=== PATIENT | female | born 1940 | race Caucasian/White ===

== ENCOUNTER → 2016-08-06 | Outpatient (CLI) | payer BC ==
[~2016-08-06] MED LIST: AMLO10TA4 PO; ASPI81TA21 PO; ATEN-174 PO; CALC1TAB10 PO; CHOL100040 PO; FLNIN NAE; GLUC10007 PO; HYDR25TA4 PO; LISI40TA PO; MULT-506 PO; SIMV20TA2 PO; TRAM-10 PO
--- NOTE | 2016-08-06 14:28 | MAMMOGRAPHY REPORT ---
BILATERAL DIGITAL SCREENING MAMMOGRAM WITH CAD: 08/06/2016 CLINICAL HISTORY: Routine screening. Patient has no complaints. TECHNIQUE: Bilateral CC, MLO and repeat left CC views were obtained. Current study was also evaluat ed with a Computer Aided Detection (CAD) system. COMPARISON: Comparison is made to exams dated: 08/02/2015 mammogram, 07/27/2014 mammogram, 05/26/2013 mammogram, 05/15/2011 mammogram, 05/04/2010 mammogram, and 05/03/2009 mammogram - [facility]. BREAST COMPOSITION: The tissue of both breasts is almost entirely fatty. FINDINGS: There are stable benign-appearing calcifications within the right breast. No new suspici ous spiculated or irregular mass, architectural distortion or cluster of new, suspicious microcalcif ications is seen. IMPRESSION: ACR BI-RADS CATEGORY 1: NEGATIVE There is no mammographic evidence of malignancy. A 1 year screening mammogram is recommended. The p atient will receive written notification of the results. Approximately 10% of breast cancers are not detected with mammography. A negative mammographic repor t should not delay biopsy if a clinically suggestive mass is present. Kyra Chang M.D. ay/:08/06/2016 13:59:36 [employer] Power Line Repairer: Cata Lowery, [facility] letter sent: Normal 1/2 BI-RADS Code: ACR BI-RADS Category 1: Negative
== END | disposition home or self-care (01) ==
LOC: C.MAMM 07:52
PROVIDERS: ATTEND Internal Medicine
DX: Z12.31 Encounter for screening mammogram for malignant neoplasm of breast (principal)

== ENCOUNTER → 2017-01-16 | Outpatient (CLI) | payer BC ==
[2017-01-16 13:21] LABS: BASO % 0.9 %; BASO ABS # 0.05 K/uL (0-0.2); COMPLETE YES; EOS % 4.3 %; HEMATOCRIT 39.9 % (37-47); IG% 0.2 %; LYMPH % 26.9 %; MEAN CELL VOLUME 90.7 fL (80-100); MEAN CORPUSCULAR HEMOGLOBIN 30.5 pg (25-34); MEAN CORPUSCULAR HGB CONC 33.6 g/dl (32-36); MEAN PLATELET VOLUME 11.9 fL (7.4-10.4); MONO % 7.2 %; NEUT % 60.5 %; PLATELET COUNT 219 K/uL (130-400); WHITE BLOOD COUNT 5.57 K/uL (4.8-10.8)
[2017-01-16 14:10] LABS: ALT/SGPT 25 U/L (12-78); AST/SGOT 23 U/L (15-37); BLOOD UREA NITROGEN 22 mg/dl (7-18); BUN/CREATININE RATIO 21.7 (10-20); CALCIUM 9.7 mg/dl (8.5-10.1); CARBON DIOXIDE 29 mmol/L (21-32); CHLORIDE 102 mmol/L (98-107); CHOLESTEROL 171 mg/dl (0-200); GLUCOSE 93 mg/dl (70-99); POTASSIUM 3.8 mmol/L (3.5-5.1); SODIUM 137 mmol/L (136-145)
[2017-01-16 14:21] LABS: CHOLESTEROL/HDL RATIO 2.1; HDL CHOLESTEROL 83 mg/dl; LDL CHOLESTEROL CALCULATED 71 mg/dl; THYROID STIMULATING HORMONE 0.705 uIu/ml (0.300-4.500); TRIGLYCERIDES 87 mg/dl (0-150); VERY LOW DENSITY LIPOPROT CALC 17 mg/dl
== END | disposition home or self-care (01) ==
LOC: C.LAB1850 12:14
PROVIDERS: ATTEND Internal Medicine
DX: E78.00 Pure hypercholesterolemia, unspecified (principal); I10 Essential (primary) hypertension; I73.9 Peripheral vascular disease, unspecified; R23.2 Flushing

== ENCOUNTER → 2017-01-25 | Outpatient (CLI) | payer BC ==
--- NOTE | 2017-01-25 13:57 | DIAGNOSTIC IMAGING REPORT ---
VENOUS DOPP LOWER EXT UNILAT CLINICAL HISTORY: M79.609,M79.662 pain. Edema. TECHNIQUE: Venous Doppler COMPARISON STUDY: None FINDINGS: Normal study IMPRESSION: Normal study The above report was generated using voice recognition software. It may contain grammatical, syntax or spelling errors. Electronically signed by: Mason Gamboa M.D. 01/25/2017 1:56 PM Dictated Date/Time: 01/25/2017 1:55 PM
== END | disposition home or self-care (01) ==
LOC: C.ULTR 13:15
PROVIDERS: ATTEND Physician Assistant
DX: M79.609 Pain in unspecified limb (principal); M79.662 Pain in left lower leg

== ENCOUNTER → 2017-08-13 | Outpatient (CLI) | payer BC ==
[~2017-08-13] MED LIST changes: +ASPI-319 PO; -ASPI81TA21 PO
[2017-08-13 12:21] LABS: ALT/SGPT 31 U/L (12-78); AST/SGOT 24 U/L (15-37); BLOOD UREA NITROGEN 22 mg/dl (7-18); CALCIUM 9.2 mg/dl (8.5-10.1); CARBON DIOXIDE 28 mmol/L (21-32); CHOLESTEROL 155 mg/dl (0-200); CREATININE 1.04 mg/dl (0.60-1.20); GLUCOSE 101 mg/dl (70-99); POTASSIUM 3.8 mmol/L (3.5-5.1); SODIUM 131 mmol/L (136-145)
[2017-08-13 12:24] LABS: LDL CHOLESTEROL CALCULATED 57 mg/dl
== END | disposition home or self-care (01) ==
LOC: C.LAB1850 10:20
PROVIDERS: ATTEND Internal Medicine
DX: E78.00 Pure hypercholesterolemia, unspecified (principal); I10 Essential (primary) hypertension

== ENCOUNTER → 2017-09-17 | Outpatient (CLI) | payer BC ==
--- NOTE | 2017-09-18 15:05 | MAMMOGRAPHY REPORT ---
BILATERAL DIGITAL SCREENING MAMMOGRAM TOMOSYNTHESIS WITH CAD: 09/17/2017 CLINICAL HISTORY: Routine screening. Patient has no complaints. TECHNIQUE: Breast tomosynthesis in addition to standard 2D mammography was performed. Current study was also evaluated with a Computer Aided Detection (CAD) system. COMPARISON: Comparison is made to exams dated: 08/06/2016 mammogram, 08/02/2015 mammogram, 07/27/2014 m ammogram, 05/26/2013 mammogram, 05/21/2012 mammogram, and 05/15/2011 mammogram - [facility]. BREAST COMPOSITION: The tissue of both breasts is almost entirely fatty. FINDINGS: There are a few stable benign calcifications in the right breast. No suspicious mass, arch itectural distortion or cluster of microcalcifications is seen. IMPRESSION: ACR BI-RADS CATEGORY 1: NEGATIVE There is no mammographic evidence of malignancy. A 1 year screening mammogram is recommended. The pa tient will receive written notification of the results. Approximately 10% of breast cancers are not detected with mammography. A negative mammographic report should not delay biopsy if a clinically suggestive mass is present. Kyra Chang M.D. ay/:09/17/2017 16:38:09 Layout Former: Vicky Rene M, [facility] letter sent: Normal 1/2 BI-RADS Code: ACR BI-RADS Category 1: Negative
== END | disposition home or self-care (01) ==
LOC: C.MAMM 13:20
PROVIDERS: ATTEND Internal Medicine
DX: Z12.31 Encounter for screening mammogram for malignant neoplasm of breast (principal)

== ENCOUNTER → 2017-12-04 | Outpatient (CLI) | payer BC ==
[2017-12-04 10:00] LABS: HEMATOCRIT 38.5 % (37-47); HEMOGLOBIN 12.8 g/dL (12.0-16.0); MEAN CELL VOLUME 92.5 fL (80-100); MEAN CORPUSCULAR HEMOGLOBIN 30.8 pg (25-34); MEAN CORPUSCULAR HGB CONC 33.2 g/dl (32-36); MEAN PLATELET VOLUME 11.2 fL (7.4-10.4); PLATELET COUNT 246 K/uL (130-400); RED CELL DISTRIBUTION WIDTH CV 13.8 % (11.5-14.5); RED CELL DISTRIBUTION WIDTH SD 46.5 fL (36.4-46.3); WHITE BLOOD COUNT 4.39 K/uL (4.8-10.8)
[2017-12-04 13:40] LABS: BLOOD UREA NITROGEN 31 mg/dl (7-18); CALCIUM 9.2 mg/dl (8.5-10.1); CARBON DIOXIDE 26 mmol/L (21-32); CREATININE 1.12 mg/dl (0.60-1.20); GLUCOSE 104 mg/dl (70-99); POTASSIUM 4.5 mmol/L (3.5-5.1); SODIUM 132 mmol/L (136-145)
== END | disposition home or self-care (01) ==
LOC: C.LAB1850 09:36
PROVIDERS: ATTEND Internal Medicine
DX: L67.9 Hair color and hair shaft abnormality, unspecified (principal)

== ENCOUNTER 2023-05-09 08:19 | Inpatient (IN) ==
--- NOTE | 2023-04-11 11:26 | PAT Medication Instructions ---
Medication Instructions Date of Service April 11, 2023 Home Medications Medication Instructions Recorded tramadol 50 mg tablet 50 mg PO Q6H PRN pain #180 tabs 03/21/23 atenolol 50 mg tablet 50 mg PO QAM #90 tabs 04/11/23 multivitamin with iron 1 tab PO QAM aspirin 81 mg tablet,delayed release 81 mg PO QAM biotin 5 mg tablet 5 mg PO BID glucosamine sulfate 2KCl 1,000 mg tablet 2,000 mg PO BID tramadol 50 mg tablet 50 mg PO Q6H PRN acetaminophen 500 mg tablet 500 mg PO Q6H PRN amlodipine 10 mg tablet 10 mg PO QAM atenolol 50 mg tablet 50 mg PO QAM calcium 500 mg tablet 1,000 mg PO QAM cyanocobalamin (vitamin B-12) 5,000 mcg sublingual tablet (Vitamin B-12) 5,000 mcg sublingual QAM hydrochlorothiazide 25 mg tablet 25 mg PO QAM ibuprofen 200 mg tablet (Advil) 200 mg PO Q6H PRN lisinopril 40 mg tablet 40 mg PO QAM simvastatin 20 mg tablet 20 mg PO QPM ASK your surgeon for instructions ibuprofen 200 mg tablet (Advil) 200 mg PO Q6H PRN ASK your prescriber and surgeon aspirin 81 mg tablet,delayed release 81 mg PO QAM STOP taking 2 weeks before surgery (or as soon as possible if surgery is within 2 weeks) biotin 5 mg tablet 5 mg PO BID glucosamine sulfate 2KCl 1,000 mg tablet 2,000 mg PO BID DO NOT take the morning of surgery multivitamin with iron 1 tab PO QAM calcium 500 mg tablet 1,000 mg PO QAM cyanocobalamin (vitamin B-12) 5,000 mcg sublingual tablet (Vitamin B-12) 5,000 mcg sublingual QAM hydrochlorothiazide 25 mg tablet 25 mg PO QAM lisinopril 40 mg tablet 40 mg PO QAM Take morning of surgery With a small sip of water, OTHERWISE NOTHING TO EAT OR DRINK AFTER MIDNIGHT: tramadol 50 mg tablet 50 mg PO Q6H PRN(if needed) acetaminophen 500 mg tablet 500 mg PO Q6H PRN(if needed) amlodipine 10 mg tablet 10 mg PO QAM atenolol 50 mg tablet 50 mg PO QAM Take evening before surgery tramadol 50 mg tablet 50 mg PO Q6H PRN(if needed) acetaminophen 500 mg tablet 500 mg PO Q6H PRN(if needed) simvastatin 20 mg tablet 20 mg PO QPM Other Notes If you have any questions please call us at [phone] or [phone] or [phone] or [phone]
--- NOTE | 2023-04-16 10:30 | Anesthesiology Consultation ---
Date of Service April 16, 2023 Assessment & Plan (1) Encounter for pre-operative examination: - difficult intubation: d/t narrow oropharynx per pt as advised by anesthesiologist in past-no available records. - Outpatient joint assessment: Patient is currently scheduled for inpatient pathway. If re-evaluated and patient/surgeon requests outpatient pathway, patient is not recommended candidate for outpatient joint program from anesthesia standpoint. Chart Review Chart Review: Acceptable Risk for Surgery and Patient seen in Pre Admission Testing Teaching & Discussion Pre-Anesthesia Teaching/Discussion Notes: Instructed NPO after midnight before surgery, except medications with 15 cc of water. Medication instructions provided according to the PAT guidelines. History Surgery Operation Date: 05/10/23 10:30 Proposed Procedures p Right Reverse Total Shoulder Arthroplasty - Harjit Power, Height/Weight Height: 5 ft 1.5 in Weight: 66 kg Allergies Allergy/AdvReac Type Severity Reaction Status Date / Time erythromycin base Allergy Mild hives Verified 04/11/23 09:40 Penicillins Allergy Unknown throat Verified 04/11/23 09:40 swelling Sulfa (Sulfonamide Allergy Unknown Swelling Verified 04/11/23 09:40 Antibiotics) of Lip/Tongue/Throat sulfamethoxazole Allergy Unknown Swelling Verified 04/11/23 09:40 of Lip/Tongue/Throat adhesive AdvReac Unknown skin Verified 04/16/23 10:29 irritation Medications Home Medications Medication Instructions Recorded Confirmed Last Taken multivitamin with iron 1 tab PO QAM 10/13/18 04/11/23 Unknown aspirin 81 mg tablet,delayed 81 mg PO QAM 12/01/18 04/11/23 Unknown release biotin 5 mg tablet 5 mg PO BID 12/01/18 04/11/23 Unknown glucosamine sulfate 2KCl 1,000 mg 2,000 mg PO BID 12/01/18 04/11/23 Unknown tablet tramadol 50 mg tablet 50 mg PO Q6H PRN pain #180 tabs 03/21/23 04/11/23 Unknown acetaminophen 500 mg tablet 500 mg PO Q6H PRN prn 04/11/23 04/11/23 Unknown amlodipine 10 mg tablet 10 mg PO QAM 04/11/23 04/11/23 Unknown atenolol 50 mg tablet 50 mg PO QAM #90 tabs 04/11/23 Unknown calcium 500 mg tablet 1,000 mg PO QAM 04/11/23 04/11/23 Unknown cyanocobalamin (vitamin B-12) 5,000 mcg sublingual QAM 04/11/23 04/11/23 Unknown 5,000 mcg sublingual tablet (Vitamin B-12) hydrochlorothiazide 25 mg tablet 25 mg PO QAM 04/11/23 04/11/23 Unknown ibuprofen 200 mg tablet (Advil) 200 mg PO Q6H PRN prn 04/11/23 04/11/23 Unknown lisinopril 40 mg tablet 40 mg PO QAM 04/11/23 04/11/23 Unknown simvastatin 20 mg tablet 20 mg PO QPM 04/11/23 04/11/23 Unknown Past Medical History Medical History (Updated 04/16/23 @ 10:31 by Shayy Rocha PA-C) Difficult intubation d/t narrow oropharynx per pt as advised by anesthesiologist in past-no available records History of COVID-19 2021, resolved Osteoporosis Chronic pain History of chronic kidney disease patient denies any kidney disease Hypercholesterolemia Hypertension controlled, stable per pt Lumbosacral radiculopathy at L5 Peripheral vascular disease Solitary thyroid nodule Spondylolisthesis, acquired Postoperative CSF leak (07/28/13) with lumbar surgery Patient denies h/o stroke, seizures, heart attack, heart failure, DM, blood clots/DVTs or blood transfusions. Exercise / Class Metabolic Activity II 4-5 Yardwork/Stairs/Walk up hill (denies chest discomfort or shortness of breath with 1 FOS) Past Family History Family History Unknown Hypertension Mother Congestive heart failure Father Stroke syndrome Sister Breast cancer Denies family history of Colon cancer Ovarian cancer Prostate cancer Myocardial infarction Past Surgical History Surgical History History of intravascular stent placement 13 years ago, [facility] History of lumbar spinal fusion x 2 --[address] [facility] [place], 2013 Dr garcia History of colonoscopy S/P tonsillectomy and adenoidectomy S/P small bowel resection S/P cataract surgery bilateral S/P appendectomy Past Anesthesia History Difficult Airway (d/t narrow oropharynx per pt as advised by anesthesiologist in past-no available records) and No Family Hx of Anesthesia Complications History of PONV No Hx of PONV and No Hx of Motion Sickness Social History Smoking Status: Never smoker Do You Dip or Chew Tobacco: No Hx Alcohol Use: Yes Alcohol type: wine alcohol intake frequency: 0-2 drinks per day Hx Substance Use: No Review of Systems Patient denies chest pain, shortness of breath, dyspnea on exertion, snoring, witnessed apneas, reflux, fever, chills, cough, wheezing, or palpitations. Physical Exam Vital Signs Vitals BP 134/60 P 53 TEMP 98.4 SP02 97% on RA RESP 17 Physical Patient resting comfortably in chair in no acute distress, alert and oriented, responding appropriately throughout visit Full cervical extension range of motion without pain TMD < 3 finger breadths Mallampati Score 3, small oral opening Dentition: several crowns, denies chipped or loose teeth, caps, implants or bridges Lungs: normal respiratory effort. Good air movement, clear throughout to auscultation, no adventitious breath sounds Cardiac: regular rate and rhythm, no murmurs noted Carotid arteries: negative bruit bilat Lab Results Anesthesia Preop Results Results Anesthesia Widget: WBC 5.78 K/ul (4.8-10.8) 04/16/23 Hgb 12.6 g/dl (12.0-16.0) 04/16/23 Hct 38.5 % (37.0-47.0) 04/16/23 Plt 289 K/uL (130-400) 04/16/23 Na 134 mmol/L (136-145) L 04/16/23 K 4.4 mmol/L (3.5-5.1) 04/16/23 Cl 97 mmol/L (98-107) L 04/16/23 CO2 30 mmol/L (21-32) 04/16/23 BUN 28 mg/dl (6-23) H 04/16/23 Creat 1.21 mg/dl (0.6-1.2) H 04/16/23 Glucose Level 94 mg/dl (70-99(Fasting)) 04/16/23 PT 10.9 Seconds (9.0-12.0) 04/16/23 PTT 27 Seconds (21-31) 04/16/23 INR 1.0 (0.9-1.1) 04/16/23 TSH 0.451 uIu/ml (0.300-4.500) 03/12/23 Blood Type O Positive 04/16/23 Antibody Screen NEGATIVE 04/16/23 Testing Electrocardiogram Date: 04/16/23 Sinus bradycardia, rate 54 bpm Chest X-Ray Date: 04/16/23 Cardiomegaly with no active disease in the chest. Other Testing Carotid doppler 10/13/19 No hemodynamically significant stenosis seen within the carotid arteries. Scattered plaque bilaterally
[~2023-05-09 08:19] MED LIST changes: +ACETAMINOPHEN 500 MG TAB PO SCH; -AMLO10TA4 PO; -ASPI-319 PO; -ATEN-174 PO; +BUPIVACAINE 0.5 % 5 MG/1 ML PF 10ML VIAL ONE; -CALC1TAB10 PO; -CHOL100040 PO; +FAMOTIDINE 20 MG TAB PO SCH; -FLNIN NAE; +GABAPENTIN 300 MG CAP PO SCH; -GLUC10007 PO; -HYDR25TA4 PO; -LISI40TA PO; +LR 15ML/HR IV SCH; +LR 60ML/HR IV SCH; -MULT-506 PO; +ORTHO JOINT MIX INFIL SCH; -SIMV20TA2 PO; -TRAM-10 PO; +TRANEXAMIC ACID 1,000 MG **IV Intra-op IV SCH; +TRANEXAMIC ACID 1,000 MG **IV Pre-op IV SCH; +dexAMETHasone 4 MG TAB PO SCH
[2023-05-09] MEDS ORDERED: ONDANSETRON INJ 2 MG/ML 2 ML VIAL ONE (09:14)
[2023-05-09] MEDS ORDERED: LIDOCAINE 2% 2 ML VIAL/AMP(20MG/ML) INFIL ONE ×2 (09:14→09:15)
[2023-05-09] MEDS ORDERED: DEXAMETHASONE SOD INJ 4 MG/ML VIAL ONE (09:14)
[2023-05-09] MEDS ORDERED: PROPOFOL IV EMULSION 10 MG/ML 20 ML VIAL IV ONE (09:14)
[2023-05-09] MEDS ORDERED: MIDAZOLAM HCL 1 MG/ML 2ML VIAL ONE (09:15)
[2023-05-09] MEDS ORDERED: fentaNYL citrate PF 100 MCG/2 ML VIAL ONE (09:15)
--- NOTE | 2023-05-09 09:50 | History & Physical Bridge Note ---
Date of Service May 09, 2023 History & Physical Bridge Note I have examined the patient, reviewed the History & Physical and in the interval since the performance of the History & Physical I have noted the following changes of clinical significance: no changes noted
[2023-05-09] MEDS ORDERED: ceFAZolin 2000MG 2,000 MG/15 ML SYR IV ONE (09:59)
[2023-05-09] MEDS ORDERED: ceFAZolin 2,000 MG/15 ML IV PUSH IV ONE (09:59)
[2023-05-09] MEDS ORDERED: PROMETHAZINE HCL 6.25 MG in SODIUM CHLORIDE 0.9% 50 ML IV PRN (10:04)
[2023-05-09] MEDS ORDERED: fentaNYL citrate PF 100 MCG/2 ML VIAL IV PRN (10:04)
[2023-05-09] MEDS ORDERED: ATROPINE SULFATE 0.1 MG/ML 10ML SYR IV PRN (10:04)
[2023-05-09] MEDS ORDERED: ONDANSETRON INJ 2 MG/ML 2 ML VIAL IV PRN ×2 (10:04→14:13)
[2023-05-09] MEDS ORDERED: ePHEDrine sulfate 50 MG/ML AMP IV PRN (10:04)
[2023-05-09] MEDS ORDERED: ORTHO JOINT ANESTHETIC ONE (10:19)
[2023-05-09] MEDS ORDERED: PHENYLEPHRINE 100MCG/ML 10ML SYR IV ONE (10:59)
[2023-05-09] MEDS ORDERED: ePHEDrine sulfate 50 MG/5 ML SYR ONE (11:05)
[2023-05-09] MEDS ORDERED: GLYCOPYRROLATE 0.2 MG/ML VIAL ONE (11:40)
[2023-05-09] MEDS ORDERED: SODIUM CHLORIDE 0.9% PF INJ 10 ML VIAL ONE (11:52)
--- NOTE | 2023-05-09 12:03 | Operative Report ---
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 Post-Op Diagnosis: Cuff tear arthropathy right shoulder with tendinopathy long head of the biceps tendon I identified the patient and participated in the time-out.: Yes Procedure Operation Date: 05/09/23 10:00 Actual Procedures p Right Reverse Total Shoulder Arthroplasty(Right) with open biceps tenodesis as a distinct and separate procedure (modifier 59)- Harjit Power DO Surgeon Harjit Power DO Vendor Specialist Dov Parekh PA-C Estimated Blood Loss 150 Findings Consistent with Post-Op Diagnosis Specimens Right humeral head Description of Procedure A CPT code modifier 59: The long head of the biceps tendon was enlarged and inflamed consistent with tendinopathy. A tenodesis was opted. This was a separate and distinct portion of the procedure. For these reasons, a CPT code modifier 59 will be added to this case. Implants used: I used a [employer] Comprehensive reverse total shoulder arthroplasty system with a size 11 press fit micro humeral stem, a +6 offset humeral tray and a standard humeral bearing, a 25 mm medium augment baseplate with a 6.5 mm central screw and superior and inferior locking screws, and a size 36 mm eccentric glenosphere. Radha arrived at [facility] for the above procedure. She was seen in the preoperative holding area and the operative extremity was identified and signed. She was given a preoperative antibiotic, TXA, and an interscalene nerve block. She was taken back to the operating room, laid on table in supine position, and put under general anesthesia. She was then put into the beachchair position. The shoulder was then prepped and draped in sterile fashion. A timeout was done and the patient and the operative extremity was properly identified. A deltopectoral approach was used. Dissection was taken down through the fascia and the deltoid was retracted laterally and the conjoined tendon was retracted medially. The anterior shoulder was exposed. The biceps groove was opened up and the biceps tendon was examined extensively. The biceps tendon demonstrated enlargement and inflammatory changes consistent with longstanding inflammation in the context of osteoarthritis and cuff arthropathy. The long head of the biceps tendon was then tenodesed to the upper border of the pectoralis major. This was a separate and distinct portion of the procedure. The subscapularis was then directly released off the lesser tuberosity with a peel technique. The inferior capsule was released and the humeral head was dislocated. A canal finding reamer was sent down the center of the humeral canal. Sequential reaming up to a size 11 reamer was done. Off that reamer, a proximal humeral resection guide was placed. The proximal humerus was resected at 135 of inclination and 25 of retroversion. Osteophytes were then removed and the glenoid was exposed. Time was spent doing a complete capsular and labral release. The glenoid guide was then placed in the inferior aspect of the glenoid. A 3.2 mm Steinmann pin was then placed into the glenoid vault at 10 of inclination. The glenoid baseplate was then reamed. The final size 25 mm medium augment baseplate was then impacted in the place. A 6.5 mm central screw was then placed followed by superior and inferior locking screws. A 36 mm eccentric glenosphere was then impacted into place. Surrounding soft tissues were then injected with 100 cc an orthopedic pain control cocktail. The proximal humerus was then exposed. Sequential broaching of the humerus up to a size 11 broach was done. Off that broach a +6 offset humeral tray was trialed. The shoulder was then reduced, brought through a full range of motion, and felt to be stable. The shoulder was then dislocated and the broach was removed. The final size 11 micro press-fit humeral stem was then impacted into place. A standard humeral bearing was then snapped onto a +6 offset humeral tray. The humeral tray was then impacted onto the humeral stem. The shoulder was once again reduced, brought through a full range of motion, and felt to be stable. The subscapularis was then tenodesed back to the lesser tuberosity with transosseous FiberWire sutures and side to side sutures with the arm in 45 of external rotation. A dilute betadyne lavage was then done for 3 minutes. The joint was then irrigated with normal saline solution. Hemostasis was obtained. The interval was closed with 2-0 Vicryl suture. The skin was then closed with 2-0 Vicryl and alex. A Silverlon dressing was placed and the arm was rested in a regular arm sling. She was then extubated and transferred to a hospital bed. She taken to the postanesthesia care unit in stable condition. She tolerated the procedure well. Dov Parekh PA-C, was present for the entire procedure. He was critical for patient positioning, prepping, draping, retraction exposure, wound closure and application of sterile dressing. I attest to the content of the Intraoperative Record and any orders documented therein. Any exceptions are noted below.
--- NOTE | 2023-05-09 13:14 | XRay Report ---
XR shoulder RT min 2V routine CLINICAL HISTORY: Post shoulder surgery. COMPARISON: Right shoulder radiographs February 13, 2023. FINDINGS: Alignment of the reverse total right shoulder arthroplasty is anatomic. No periprosthetic fracture or unexpected radiopaque foreign bodies present. There are skin alex. IMPRESSION: Expected findings following reverse total right shoulder arthroplasty. ACT 112: Negative or not required by law. Electronically signed by: Valerio Stone M.D. 05/09/2023 1:13 PM
[2023-05-09] MEDS ORDERED: HYDROmorphone INJ 0.5 MG/0.5 ML SYR IV PRN (14:13)
[2023-05-09] MEDS ORDERED: SODIUM CHLORIDE 0.9% 1,000 ML IV SCH (14:13)
[2023-05-09] MEDS ORDERED: bisacodyL 10 MG SUPP PR PRN (14:13)
[2023-05-09] MEDS ORDERED: MAGNESIUM HYDROXIDE SUSP 30 ML UDC PO PRN (14:13)
[2023-05-09] MEDS ORDERED: NALOXONE HCL 0.4 MG/1 ML VIAL/CARP IV PRN (14:13)
[2023-05-09] MEDS ORDERED: METOCLOPRAMIDE HCL INJ 5 MG/ML 2 ML VIAL IV PRN (14:13)
--- NOTE | 2023-05-09 15:06 | Anesthesiology Progress Note ---
Date of Service May 09, 2023 Anesthesia Post Procedure Vital Signs Vital Signs: Temp Pulse Pulse Resp BP Pulse Ox O2 Del Method 05/09/23 14:15 36.5 C 57 L 18 132/80 94 Room Air 05/09/23 13:45 35.7 C L 55 L 16 152/78 H 96 Room Air 05/09/23 12:55 36.4 C L 70 18 116/61 96 Nasal Cannula 05/09/23 12:45 80 20 108/78 96 Room Air 05/09/23 12:35 88 22 129/81 97 Room Air 05/09/23 12:25 36 C L 80 14 116/70 99 Oxymask 05/09/23 08:46 36.4 C L 56 L 16 151/74 H 95 Room Air O2 Flow Rate 05/09/23 14:15 05/09/23 13:45 05/09/23 12:55 2 05/09/23 12:45 05/09/23 12:35 05/09/23 12:25 6 05/09/23 08:46 Transfer of Care Handoff Completed per policy Notes Mental Status: alert / awake / arousable Patient Amnestic to Procedure: Yes Nausea / Vomiting: adequately controlled Pain: adequately controlled Airway Patency, RR, SpO2: stable & adequate BP & HR: stable & adequate Hydration State: stable & adequate Anesthetic Complications: no major complications apparent
[2023-05-09] MEDS: ACETAMINOPHEN 500 MG TAB PO SCH ×2 (16:46→22:37)
[2023-05-09] MEDS: KETOROLAC TROMETHAMINE 15 MG/ML VIAL IV SCH ×3 (18:01→22:37)
[2023-05-09] MEDS: ceFAZolin 2000MG 2,000 MG/15 ML SYR IV SCH (18:44)
[2023-05-09] MEDS ORDERED: CHLORASEPTIC (PHENOL) 1.4% SOLN 180 ML BTL MT PRN (19:35)
[2023-05-09] MEDS: SENNA 8.6 MG TAB PO SCH (20:34)
[2023-05-09] MEDS: SIMVASTATIN 20 MG TAB PO SCH (20:34)
[2023-05-09] MEDS: DOCUSATE SODIUM 100 MG CAP PO SCH (20:34)
[2023-05-10] MEDS: ceFAZolin 2000MG 2,000 MG/15 ML SYR IV SCH (01:43)
[2023-05-10] MEDS: KETOROLAC TROMETHAMINE 15 MG/ML VIAL IV SCH (05:03)
[2023-05-10] MEDS: ACETAMINOPHEN 500 MG TAB PO SCH ×3 (05:03→19:08)
[2023-05-10] MEDS ORDERED: dexAMETHasone 4 MG TAB PO SCH (08:00)
[2023-05-10] MEDS: ASPIRIN 81 MG ECTAB PO SCH (08:17)
[2023-05-10] MEDS: amLODIPine BESYLATE 5 MG TAB PO SCH (08:17)
[2023-05-10] MEDS: ATENOLOL 50 MG TABLET PO SCH (08:18)
[2023-05-10] MEDS: CYANOCOBALAMIN (B-12) 2,500 MCG TABLET SL SCH (08:19)
[2023-05-10] MEDS: hydroCHLOROthiazide 25 MG TAB PO SCH (08:20)
[2023-05-10] MEDS: DOCUSATE SODIUM 100 MG CAP PO SCH ×2 (08:20→20:29)
[2023-05-10] MEDS: MULTIVITAMIN TAB PO SCH (08:21)
[2023-05-10] MEDS: lisinopril 40 MG TAB PO SCH (08:21)
--- NOTE | 2023-05-10 10:12 | Orthopedic Progress Note ---
Date of Service May 10, 2023 Assessment & Plan (1) Status post reverse total replacement of right shoulder: Overall, Radha is doing quite well today with good pain control. She will work with physical therapy later on this morning to work on range of motion exercises of the right upper extremity. She is interested in being discharged to [facility]. Case management will work on this. She is stable for discharge once a bed is available. She will follow-up with orthopedics in 2 weeks for postoperative care. I, Dr. Harjit Power, saw and examined the patient this morning. I discussed the surgery and answered any questions. I agree with the plan of care above. Subjective . Radha was seen and evaluated at bedside this morning resting comfortably in no apparent distress. She notes that her pain is well-controlled to the right shoulder. She has been up and ambulating with no issues. Arm is immobilized in sling as directed. No other issues. Review of Systems All systems reviewed & are unremarkable except as noted in HPI & below. Physical Exam . On physical examination of the right shoulder, dressing is in place, clean, dry, and intact. Shoulder immobilized in sling. Active range of motion at the elbow, wrist, and all 5 digits. +2 radial pulse. Less than 2-second capillary refill. Normal sensation. Neurovascular intact. Results & Data Results & Data Laboratory Results . Diagnostic Findings . Postoperative x-rays of the right shoulder show prosthesis to be in anatomical alignment with no evidence of fracture complication or loosening. PG Care Time/CCT Total # of Minutes Spent Total Time Spent with Patient: Total time spent is greater than 50% in coordination of care (as documented) at patient's floor/unit and/or counseling patient: Coding Level of Care Code 19981 Post Operative Follow-Up Diagnoses Status post reverse total replacement of right shoulder Z96.611
[2023-05-10] MEDS: traMADol HCL 50 MG TABLET PO PRN (11:13)
[2023-05-10] MEDS: oxyCODONE HCL IR 5 MG TAB (IMMEDIATE RELEASE) PO PRN ×2 (14:25→20:25)
[2023-05-10] MEDS: SIMVASTATIN 20 MG TAB PO SCH (20:29)
[2023-05-10] MEDS: SENNA 8.6 MG TAB PO SCH (20:29)
[2023-05-10] MEDS: MELATONIN 3 MG TAB PO PRN (21:15)
[2023-05-11] MEDS: oxyCODONE HCL IR 5 MG TAB (IMMEDIATE RELEASE) PO PRN ×2 (03:39→08:22)
[2023-05-11] MEDS: ACETAMINOPHEN 500 MG TAB PO SCH ×3 (06:21→21:04)
--- NOTE | 2023-05-11 07:10 | Orthopedic Progress Note ---
Date of Service May 11, 2023 Assessment & Plan (1) Status post reverse total replacement of right shoulder: Overall she is doing well. She is not having too much pain in the right shoulder. She will be seen by physical therapy today for ambulation and range of motion exercises. She is currently awaiting discharge to a rehab facility. Akash Garcia was seen and examined at bedside this morning. Overall she is doing fairly well. She is a little bit of soreness in the right shoulder but is not too bad. She was able to participate with physical therapy. She has no complaints.. Review of Systems All systems reviewed & are unremarkable except as noted in HPI & below. Physical Exam On physical examination the right shoulder, the dressing is clean and dry. Her right upper extremity is neurovascular intact.. Results & Data Results & Data Laboratory Results . Diagnostic Findings . PG Care Time/CCT Total # of Minutes Spent Total Time Spent with Patient: Total time spent is greater than 50% in coordination of care (as documented) at patient's floor/unit and/or counseling patient: Coding Level of Care Code 58988 Post Operative Follow-Up Diagnoses Status post reverse total replacement of right shoulder Z96.611
[2023-05-11] MEDS: amLODIPine BESYLATE 5 MG TAB PO SCH (08:14)
[2023-05-11] MEDS: ASPIRIN 81 MG ECTAB PO SCH (08:15)
[2023-05-11] MEDS: ATENOLOL 50 MG TABLET PO SCH (08:15)
[2023-05-11] MEDS: CYANOCOBALAMIN (B-12) 2,500 MCG TABLET SL SCH (08:17)
[2023-05-11] MEDS: DOCUSATE SODIUM 100 MG CAP PO SCH ×2 (08:17→21:05)
[2023-05-11] MEDS: hydroCHLOROthiazide 25 MG TAB PO SCH (08:18)
[2023-05-11] MEDS: lisinopril 40 MG TAB PO SCH (08:19)
[2023-05-11] MEDS: MULTIVITAMIN TAB PO SCH (08:19)
[2023-05-11] MEDS: traMADol HCL 50 MG TABLET PO PRN (11:32)
[2023-05-11] MEDS: SENNA 8.6 MG TAB PO SCH (21:05)
[2023-05-11] MEDS: SIMVASTATIN 20 MG TAB PO SCH (21:05)
[2023-05-12] MEDS: ACETAMINOPHEN 500 MG TAB PO SCH ×3 (05:29→22:00)
--- NOTE | 2023-05-12 06:27 | Orthopedic Progress Note ---
Date of Service May 12, 2023 Assessment & Plan (1) Status post reverse total replacement of right shoulder: Overall she is doing well. She is not having much pain in the right shoulder. She will be seen by physical therapy today for ambulation and range of motion exercises. She is awaiting for discharge to rehab on Saturday. Akash Garcia was seen and examined at bedside this morning. Overall she doing very well. She is not having much pain in the right shoulder. She has been working well with physical therapy. She has no complaints.. Review of Systems All systems reviewed & are unremarkable except as noted in HPI & below. Physical Exam On physical examination of right shoulder, the dressing is clean and dry. She is wearing her sling as instructed. She has active motion of her hand and wrist.. Results & Data Results & Data Laboratory Results . Diagnostic Findings . PG Care Time/CCT Total # of Minutes Spent Total Time Spent with Patient: Total time spent is greater than 50% in coordination of care (as documented) at patient's floor/unit and/or counseling patient: Coding Level of Care Code 73593 Post Operative Follow-Up Diagnoses Status post reverse total replacement of right shoulder Z96.611
[2023-05-12] MEDS: hydroCHLOROthiazide 25 MG TAB PO SCH (07:51)
[2023-05-12] MEDS: DOCUSATE SODIUM 100 MG CAP PO SCH ×2 (07:51→21:59)
[2023-05-12] MEDS: lisinopril 40 MG TAB PO SCH (07:51)
[2023-05-12] MEDS: MULTIVITAMIN TAB PO SCH (07:51)
[2023-05-12] MEDS: amLODIPine BESYLATE 5 MG TAB PO SCH (07:52)
[2023-05-12] MEDS: ASPIRIN 81 MG ECTAB PO SCH (07:52)
[2023-05-12] MEDS: ATENOLOL 50 MG TABLET PO SCH (07:52)
[2023-05-12] MEDS: CYANOCOBALAMIN (B-12) 2,500 MCG TABLET SL SCH (07:52)
[2023-05-12] MEDS: traMADol HCL 50 MG TABLET PO PRN (15:24)
[2023-05-12] MEDS: SIMVASTATIN 20 MG TAB PO SCH (22:00)
[2023-05-12] MEDS: SENNA 8.6 MG TAB PO SCH (22:00)
[2023-05-13] MEDS: traMADol HCL 50 MG TABLET PO PRN ×3 (03:16→18:36)
[2023-05-13] MEDS: ACETAMINOPHEN 500 MG TAB PO SCH ×3 (06:12→21:31)
[2023-05-13] MEDS: lisinopril 40 MG TAB PO SCH (07:55)
[2023-05-13] MEDS: ASPIRIN 81 MG ECTAB PO SCH (07:55)
[2023-05-13] MEDS: CYANOCOBALAMIN (B-12) 2,500 MCG TABLET SL SCH (07:56)
[2023-05-13] MEDS: MULTIVITAMIN TAB PO SCH (07:56)
[2023-05-13] MEDS: amLODIPine BESYLATE 5 MG TAB PO SCH (07:56)
[2023-05-13] MEDS: hydroCHLOROthiazide 25 MG TAB PO SCH (07:57)
[2023-05-13] MEDS: DOCUSATE SODIUM 100 MG CAP PO SCH ×2 (07:57→21:30)
[2023-05-13] MEDS: ATENOLOL 50 MG TABLET PO SCH (07:57)
--- NOTE | 2023-05-13 09:24 | Orthopedic Progress Note ---
Date of Service May 13, 2023 Assessment & Plan (1) Status post reverse total replacement of right shoulder: Overall she is doing very well. She is not having much pain in the right shoulder. She has already been seen by physical therapy today. She is awaiting discharge to a nursing facility. Akash Garcia was seen and examined at bedside This morning. She is doing very well. She is not having much pain in the right shoulder. She was seen by physical therapy today. She has no complaints. . Review of Systems All systems reviewed & are unremarkable except as noted in HPI & below. Physical Exam On physical examination of the right shoulder, the sling is well-fitting. She has ice on her shoulder. She is neurovascular intact. . Results & Data Results & Data Laboratory Results . Diagnostic Findings . PG Care Time/CCT Total # of Minutes Spent Total Time Spent with Patient: Total time spent is greater than 50% in coordination of care (as documented) at patient's floor/unit and/or counseling patient: Coding Level of Care Code 55209 Post Operative Follow-Up Diagnoses Status post reverse total replacement of right shoulder Z96.611
[2023-05-13] MEDS: SENNA 8.6 MG TAB PO SCH (21:30)
[2023-05-13] MEDS: SIMVASTATIN 20 MG TAB PO SCH (21:31)
[2023-05-14] MEDS: traMADol HCL 50 MG TABLET PO PRN ×2 (04:43→16:12)
[2023-05-14] MEDS: ACETAMINOPHEN 500 MG TAB PO SCH ×3 (05:21→22:51)
[2023-05-14] MEDS: ATENOLOL 50 MG TABLET PO SCH (07:47)
[2023-05-14] MEDS: hydroCHLOROthiazide 25 MG TAB PO SCH (07:47)
[2023-05-14] MEDS: lisinopril 40 MG TAB PO SCH (07:47)
[2023-05-14] MEDS: CYANOCOBALAMIN (B-12) 2,500 MCG TABLET SL SCH (07:47)
[2023-05-14] MEDS: amLODIPine BESYLATE 5 MG TAB PO SCH (07:47)
[2023-05-14] MEDS: ASPIRIN 81 MG ECTAB PO SCH (07:47)
[2023-05-14] MEDS: MULTIVITAMIN TAB PO SCH (07:47)
[2023-05-14] MEDS: DOCUSATE SODIUM 100 MG CAP PO SCH ×2 (07:48→20:16)
[2023-05-14] MEDS: SIMVASTATIN 20 MG TAB PO SCH (20:15)
[2023-05-14] MEDS: SENNA 8.6 MG TAB PO SCH (20:16)
[2023-05-15] MEDS: ACETAMINOPHEN 500 MG TAB PO SCH ×3 (05:49→21:25)
[2023-05-15] MEDS: DOCUSATE SODIUM 100 MG CAP PO SCH ×2 (08:15→21:24)
[2023-05-15] MEDS: MULTIVITAMIN TAB PO SCH (08:15)
[2023-05-15] MEDS: ATENOLOL 50 MG TABLET PO SCH (08:15)
[2023-05-15] MEDS: lisinopril 40 MG TAB PO SCH (08:15)
[2023-05-15] MEDS: amLODIPine BESYLATE 5 MG TAB PO SCH (08:15)
[2023-05-15] MEDS: ASPIRIN 81 MG ECTAB PO SCH (08:15)
[2023-05-15] MEDS: hydroCHLOROthiazide 25 MG TAB PO SCH (08:15)
[2023-05-15] MEDS: CYANOCOBALAMIN (B-12) 2,500 MCG TABLET SL SCH (08:20)
--- NOTE | 2023-05-15 09:13 | Orthopedic Progress Note ---
Date of Service May 15, 2023 Assessment & Plan (1) Status post reverse total replacement of right shoulder: Overall she is doing very well. She is not having much pain in the right shoulder. She has not been seen by physical therapy today. She is awaiting discharge to [facility]. Anticipated discharge is tomorrow with unknown time. Subjective . Radha (Vijay) is doing quite well today with good pain control to the right shoulder. She is currently still waiting for a bed opening at [facility]. Anticipated discharge is tomorrow. She has worked with physical therapy and Occupational Therapy will be in here. She has no concerns today. Review of Systems All systems reviewed & are unremarkable except as noted in HPI & below. Physical Exam . On physical examination of the right shoulder, the sling is well-fitting. She has ice on her shoulder. She is neurovascular intact. Results & Data Results & Data Laboratory Results . Diagnostic Findings . PG Care Time/CCT Total # of Minutes Spent Total Time Spent with Patient: Total time spent is greater than 50% in coordination of care (as documented) at patient's floor/unit and/or counseling patient: Coding Level of Care Code 74781 Post Operative Follow-Up Diagnoses Status post reverse total replacement of right shoulder Z96.611
[2023-05-15] MEDS: traMADol HCL 50 MG TABLET PO PRN ×3 (11:20→22:06)
[2023-05-15] MEDS: SENNA 8.6 MG TAB PO SCH (21:24)
[2023-05-15] MEDS: SIMVASTATIN 20 MG TAB PO SCH (21:25)
[2023-05-16] MEDS: MELATONIN 3 MG TAB PO PRN ×2 (02:09→22:22)
[2023-05-16] MEDS: traMADol HCL 50 MG TABLET PO PRN ×5 (02:09→22:19)
[2023-05-16] MEDS: ACETAMINOPHEN 500 MG TAB PO SCH ×3 (05:40→22:20)
[2023-05-16] MEDS: amLODIPine BESYLATE 5 MG TAB PO SCH (08:00)
[2023-05-16] MEDS: ASPIRIN 81 MG ECTAB PO SCH (08:00)
[2023-05-16] MEDS: CYANOCOBALAMIN (B-12) 2,500 MCG TABLET SL SCH (08:01)
[2023-05-16] MEDS: DOCUSATE SODIUM 100 MG CAP PO SCH ×2 (08:01→20:36)
[2023-05-16] MEDS: lisinopril 40 MG TAB PO SCH (08:01)
[2023-05-16] MEDS: MULTIVITAMIN TAB PO SCH (08:01)
[2023-05-16] MEDS: hydroCHLOROthiazide 25 MG TAB PO SCH (08:01)
[2023-05-16] MEDS: ATENOLOL 50 MG TABLET PO SCH (08:01)
--- NOTE | 2023-05-16 08:46 | Orthopedic Progress Note ---
Date of Service May 16, 2023 Assessment & Plan (1) Status post reverse total replacement of right shoulder: Overall she is doing very well. She is not having much pain in the right shoulder. Her Silverlon dressing may be taken off today. If surgical site is dry, it may remain open to air. If she does notice her clothes catching on the alex, an ABD with paper tape might be a good alternative to dressings for her at this time. She has not been seen by physical therapy today. She is awaiting discharge to [facility]. Anticipated discharge is either today or tomorrow with unknown time. Case management is currently working on placement. I will hold off placing the discharge order at this time until more information of definite discharge is given. Hopefully a bed is available today for her to be discharged today. Subjective . Radha (Vijay) is doing quite well today with good pain control to the right shoulder. She is currently awaiting for placement [facility]. Anticipated discharge is either today or tomorrow. She is still working with physical therapy and Occupational Therapy daily while she is here. She denies any issues today. Review of Systems All systems reviewed & are unremarkable except as noted in HPI & below. Physical Exam .On physical examination of the right shoulder, the sling is well-fitting. She has ice on her shoulder. She is neurovascular intact. Results & Data Results & Data Laboratory Results . Diagnostic Findings . PG Care Time/CCT Total # of Minutes Spent Total Time Spent with Patient: Total time spent is greater than 50% in coordination of care (as documented) at patient's floor/unit and/or counseling patient: Coding Level of Care Code 63053 Post Operative Follow-Up Diagnoses Status post reverse total replacement of right shoulder Z96.611
[2023-05-16] MEDS: SENNA 8.6 MG TAB PO SCH (20:36)
[2023-05-16] MEDS: SIMVASTATIN 20 MG TAB PO SCH (20:37)
[2023-05-17] MEDS: traMADol HCL 50 MG TABLET PO PRN ×2 (02:31→15:24)
[2023-05-17] MEDS: ACETAMINOPHEN 500 MG TAB PO SCH ×2 (06:01→15:24)
--- NOTE | 2023-05-17 08:23 | Orthopedic Progress Note ---
Date of Service May 17, 2023 Assessment & Plan (1) Status post reverse total replacement of right shoulder: Overall she is doing very well. She is not having much pain in the right shoulder. Her Silverlon dressing may be taken off today. If surgical site is dry, it may remain open to air. If she does notice her clothes catching on the alex, an ABD with paper tape might be a good alternative to dressings for her at this time. She has not been seen by physical therapy today. She is awaiting discharge to [facility]. Anticipated discharge is either today around noon. Case management is currently working on placement. She states that she has an appointment already set to see Harjit either at the end of next week or beginning of the following. Antibiotic was sent to pharmacy. She will follow- up with orthopedics for postoperative care. Akash Case Rakel) was seen and evaluated at bedside this morning resting comfortably in no apparent distress. She is currently still in her sling as of this morning. She has worked since admission with physical therapy and Occupational Therapy stating that this is going very well. She was originally waiting for insurance authorization for discharge to a retirement facility. She was denied yesterday but is self-pay and today. She is going to be discharged today. Review of Systems All systems reviewed & are unremarkable except as noted in HPI & below. Physical Exam .On physical examination of the right shoulder, the sling is well-fitting. She has ice on her shoulder. She is neurovascular intact. Results & Data Results & Data Laboratory Results . Diagnostic Findings . PG Care Time/CCT Total # of Minutes Spent Total Time Spent with Patient: Total time spent is greater than 50% in coordination of care (as documented) at patient's floor/unit and/or counseling patient: Coding Level of Care Code 60646 Post Operative Follow-Up Diagnoses Status post reverse total replacement of right shoulder Z96.611
--- NOTE | 2023-05-17 08:28 | Discharge Summary ---
Date of Service May 17, 2023 Principal Diagnosis Same as "Discharge Diagnosis" noted below under Discharge Instructions. Discharge Exam .On physical examination of the right shoulder, the sling is well-fitting. She has ice on her shoulder. She is neurovascular intact. Discharge Data Procedures Performed Operation Date: 05/09/23 10:00 Actual Procedures p Right Reverse Total Shoulder Arthroplasty(Right) - Harjit Power DO Ordered Studies 05/09/23 05:00 US - OR guided needle placemen Routine Hospital Course (1) Status post reverse total replacement of right shoulder: On May 09, 2023 Radha Ellington) arrived at [facility] and underwent a right reverse total shoulder arthroplasty with Dr. Power without complications. She had a general anesthetic. Postoperatively, she was transferred to PACU for immediate postoperative care and then transferred to the general orthopedic floor in stable condition. Her hospital course was uneventful. On postoperative day #1, her vital signs were stable and her pain was well-controlled. She worked well with physical therapy working on range of motion exercises. Due to her living alone and having limitations due to her right upper extremity being in a sling, she elected to proceed with admission to a assisted facility. Due to this process, she was admitted into the hospital until today. There is no significant events that occurred on postoperative day #2 through postoperative day #8. Her hospital course was uneventful. On postoperative day #8, her vital signs were stable and her pain was well-controlled. She participated well with physical therapy working on range of motion exercises. Insurance denied her stay at assisted facility but she decided to self-pay. She was discharged to assisted [facility] in stable condition. She will follow-up in 10 to 14 days with orthopedics for postoperative care. PG Care Time/CCT Total # of Minutes Spent Total Time Spent with Patient: Total time spent is greater than 50% in coordination of care (as documented) at patient's floor/unit and/or counseling patient: Discharge Plan Discharge Items Patient Disposition: Transfer [facility] Reason For Visit: Right Shoulder DJD Discharge Diagnosis: Same Activity: Per Instructions section Non-emergency contact: Surgeon Call non-emergency contact if: your temperature is above 101.5, your wound has increased redness and your wound has increased drainage Follow-up/Referrals: Pro,Mumtaz Godwin MD [Primary Care Provider] - Diet: Regular Addtl Attending Provider Instructions: Activity and Therapy Recommendations: * If you are using [facility] then therapy will be provided at your home until they feel you have accomplished all of your goals. * If you are using [facility] then Physical Therapy will be provided until they feel you are ready to start Outpatient Physical Therapy. * If you are not using home therapy then Outpatient Physical Therapy should start about 3-5 days from your day of surgery. Therapy will last about 8-12 weeks * Wear your sling for 3 weeks, unless otherwise instructed. You may remove your sling to shower and to dress, but otherwise, you should be in your sling at all times, including while sleeping * The shoulder replacement is very stable and you can use your hand while in the sling * You were shown a series of exercises in the hospital. Do these exercises daily including the exercises you were shown in physical therapy. Medications: * Narcotic You will likely be sent home from the hospital with a prescription for the narcotic pain medication that worked best throughout your stay. * Cefadroxil -take the antibiotic twice a day for 10 days to help prevent infection. * Other medications may be prescribed for specific circumstances. If you have any questions, please call the office at . * Resume previous home medications unless otherwise instructed Dressing Care: Leave the Silverlon dressing in place for 7 days. After 7 days you may remove the dressing. If the incision is not draining then you may leave the alex open to air. If there is a little bit of drainage or if the alex are getting stuck on your clothing then cover the incision with a dry dressing. The alex will be removed at your 2 week follow-up appointment. Showering: You may shower with the Silverlon dressing in place. Do not let the shower spray hit the dressing directly. Pat the Silverlon dressing dry. If the dressing becomes wet underneath, then simply remove the dressing. Keep the incision dry until you are 7 days out from the day of surgery. After 7 days you may remove the Silverlon dressing and shower with the alex exposed. Let soapy water run over the alex and pat them dry. Do not scrub or soak the incision. Things To Watch For: * Drainage from the incision site that occurs more than one week after your surgery. * Increased redness at the incision site. * Fever above 102 degrees Fahrenheit. * Unusual chest pain or shortness of breath. * Call [facility] at with any of the above pr oblems Follow-Up Visit: Follow-up with Dr. Power's PA (Harjit Gutierres) 2-3 weeks after your day of surgery. He will remove your alex and answer any questions. If you have any additional questions or concerns, Dr Power is usually in the office at the same time and will be available An appointment was probably scheduled when you signed-up for surgery in the office. If you have any questions call More detailed instructions as well as Frequently Asked Questions were provided in a folder by our office when you signed-up for surgery. Please review these instructions when you get home. If you have any further questions or concerns, please feel free to call the office at [phone] Pending Studies at Discharge: No Stand-Alone Forms: My [facility] Skilled Items Patient informed of condition?: Yes DNR: No Discharge Level of Care: Acute rehab Communicable Disease: No Discharge Prognosis: Stable Lines: None Urinary Catheter: No Medications and DC Order Prescriptions: New cefadroxil 500 mg capsule 500 mg PO BID 10 Days Qty: 20 0RF Continued atenolol 50 mg tablet 50 mg PO QAM Qty: 90 3RF tramadol 50 mg tablet 50 mg PO Q6H PRN (Reason: pain) Qty: 180 1RF multivitamin with iron tablet 1 tab PO QAM aspirin 81 mg tablet,delayed release (DR/EC) 81 mg PO QAM biotin 5 mg tablet 5 mg PO BID glucosamine sulfate 2KCl 1,000 mg tablet 2,000 mg PO BID amlodipine 10 mg tablet 10 mg PO QAM simvastatin 20 mg tablet 20 mg PO QPM hydrochlorothiazide 25 mg tablet 25 mg PO QAM lisinopril 40 mg tablet 40 mg PO QAM calcium 500 mg Tablet 1,000 mg PO QAM cyanocobalamin (vitamin B-12) [Vitamin B-12] 5,000 mcg Tablet, Sublingual 5,000 mcg SUBLINGUAL QAM acetaminophen 500 mg Tablet 500 mg PO Q6H PRN (Reason: prn) Discontinued ibuprofen [Advil] 200 mg Tablet 200 mg PO Q6H PRN (Reason: prn) Discharge Orders: Discharge Order (Routine); Ordered 05/17/23 Ordered By: Pedro Parekh Admission Data Admit Date/Time: 05/10/23 11:53 Attending Provider: Harjit Power Admit Provider: Harjit Power Primary Care Provider: Mumtaz Navas Other Providers: [facility]; [place],[facility]; [place],[facility]
[2023-05-17] MEDS: CYANOCOBALAMIN (B-12) 2,500 MCG TABLET SL SCH (08:30)
[2023-05-17] MEDS: hydroCHLOROthiazide 25 MG TAB PO SCH (08:30)
[2023-05-17] MEDS: DOCUSATE SODIUM 100 MG CAP PO SCH (08:30)
[2023-05-17] MEDS: ASPIRIN 81 MG ECTAB PO SCH (08:30)
[2023-05-17] MEDS: amLODIPine BESYLATE 5 MG TAB PO SCH (08:30)
[2023-05-17] MEDS: lisinopril 40 MG TAB PO SCH (08:30)
[2023-05-17] MEDS: ATENOLOL 50 MG TABLET PO SCH (08:30)
[2023-05-17] MEDS: MULTIVITAMIN TAB PO SCH (08:31)
[2023-05-17] MEDS: oxyCODONE HCL IR 5 MG TAB (IMMEDIATE RELEASE) PO PRN (08:34)
== END 2023-05-17 15:32 | disposition home or self-care (01) | DRG 483 ==
LOC: ASU 08:19 → 3E 08:19

== ENCOUNTER 2023-11-11 06:35 | Inpatient (IN) ==
--- NOTE | 2023-10-10 10:55 | PAT Medication Instructions ---
Medication Instructions Date of Service October 10, 2023 Home Medications Medication Instructions Recorded atenolol 50 mg tablet 50 mg PO QAM #90 tabs 04/11/23 simvastatin 20 mg tablet 20 mg PO QPM #90 tabs 06/03/23 tramadol 50 mg tablet 50 mg PO Q6H PRN pain #180 tabs 07/03/23 hydrochlorothiazide 25 mg tablet 25 mg PO QAM #90 tabs 08/26/23 amlodipine 10 mg tablet 10 mg PO QAM #90 tabs 09/10/23 Medication List: multivitamin with iron 1 tab PO QAM aspirin 81 mg tablet,delayed release 81 mg PO QAM glucosamine sulfate 2KCl 1,000 mg tablet 2,000 mg PO BID acetaminophen 500 mg tablet 500 - 1,000 mg PO Q6H PRN prn atenolol 50 mg tablet 50 mg PO QAM calcium 500 mg tablet 1,000 mg PO QAM cyanocobalamin (vitamin B-12) 5,000 mcg sublingual tablet (Vitamin B-12) 5,000 mcg sublingual QAM lisinopril 40 mg tablet 40 mg PO QAM simvastatin 20 mg tablet 20 mg PO QPM tramadol 50 mg tablet 50 mg PO Q6H PRN pain docusate sodium 100 mg tablet 100 mg PO BID PRN Constipation hydrochlorothiazide 25 mg tablet 25 mg PO QAM amlodipine 10 mg tablet 10 mg PO QAM MEDICATION INSTRUCTIONS: ASK your prescriber and surgeon aspirin 81 mg tablet,delayed release 81 mg PO QAM STOP taking 2 weeks before surgery glucosamine sulfate 2KCl 1,000 mg tablet 2,000 mg PO BID DO NOT take the morning of surgery hydrochlorothiazide 25 mg tablet 25 mg PO QAM lisinopril 40 mg tablet 40 mg PO QAM calcium 500 mg tablet 1,000 mg PO QAM multivitamin with iron 1 tab PO QAM cyanocobalamin (vitamin B-12) 5,000 mcg sublingual tablet (Vitamin B-12) 5,000 mcg sublingual QAM docusate sodium 100 mg tablet 100 mg PO BID PRN Constipation Take morning of surgery With a small sip of water, OTHERWISE NOTHING TO EAT OR DRINK AFTER MIDNIGHT: atenolol 50 mg tablet 50 mg PO QAM amlodipine 10 mg tablet 10 mg PO QAM acetaminophen 500 mg tablet 500 - 1,000 mg PO Q6H PRN prn tramadol 50 mg tablet 50 mg PO Q6H PRN pain Take evening before surgery simvastatin 20 mg tablet 20 mg PO QPM acetaminophen 500 mg tablet 500 - 1,000 mg PO Q6H PRN prn tramadol 50 mg tablet 50 mg PO Q6H PRN pain docusate sodium 100 mg tablet 100 mg PO BID PRN Constipation Other Notes If you have any questions please call us at [phone] or [phone] or [phone] or [phone]
--- NOTE | 2023-10-21 10:51 | Anesthesiology Consultation ---
Date of Service October 21, 2023 Assessment & Plan (1) Encounter for pre-operative examination: - Infectious disease screening: Per assessment on 10/21/23: No known recent infectious disease contacts or current infectious disease symptoms. - Previous anesthesia experience: * Hx difficult intubation: d/t narrow oropharynx per pt as advised by anesthesiologist remotely > Had Right TSA (05/09/23): LMA#4 iGel + regional at [facility] * S/P RLE angiogram (07/19/23): MAC at [facility]. No issues noted per post-op anesthesia progress note. Per procedure notes from surgeon, "The right iliac stent had a question of narrowing in the midportion however appeared to be more artifactual than true. The flow through the stent was very rapid. External iliac was patent with no stenosis however the right common femoral artery had significant stenosis at its entire length prior to the bifurcation into the profunda and superficial femoral arteries. Due to the location of the plaque it was decided not to do any intervention." * S/P Bilateral LE Runoff U/S Localization of Left Femoral Artery, Moderate Sedation (09/06/23) at [facility] Chart Review Chart Review: Acceptable Risk for Surgery and Patient seen in Pre Admission Testing Teaching & Discussion Pre-Anesthesia Teaching/Discussion Notes: Instructed NPO after midnight before surgery,except medications with 15 cc of water. Medication instructions provided according to the PAT guidelines. History Surgery Operation Date: 11/13/23 07:30 Proposed Procedures p Right Lower Extremity Common Femoral Artery Endarterectomy, Femoral to Above the Knee Popliteal Prosthetic Bypass Graft, External Iliac Stenting - Wil Salas MD Height/Weight Height: 5 ft 1.5 in Weight: 63.2 kg Allergies Allergy/AdvReac Type Severity Reaction Status Date / Time erythromycin base Allergy Severe Lip Verified 10/21/23 10:51 swelling Penicillins Allergy Severe Throat Verified 10/21/23 10:51 swelling Sulfa (Sulfonamide Allergy Severe Swelling Verified 10/08/23 09:03 Antibiotics) of Lip/Tongue/Throat sulfamethoxazole Allergy Severe Swelling Verified 10/08/23 09:03 of Lip/Tongue/Throat adhesive AdvReac Mild Skin Verified 10/21/23 10:51 irritation Medications Home Medications Medication Instructions Recorded Confirmed Last Taken multivitamin with iron 1 tab PO QAM 10/13/18 10/08/23 09/05/23 07:00 aspirin 81 mg tablet,delayed 81 mg PO QAM 12/01/18 10/08/23 09/06/23 07:00 release glucosamine sulfate 2KCl 1,000 mg 2,000 mg PO BID 12/01/18 10/08/23 09/05/23 07:00 tablet acetaminophen 500 mg tablet 500 - 1,000 mg PO Q6H PRN prn 04/11/23 10/08/23 07/12/23 atenolol 50 mg tablet 50 mg PO QAM #90 tabs 04/11/23 10/08/23 09/05/23 07:00 calcium 500 mg tablet 1,000 mg PO QAM 04/11/23 10/08/23 09/05/23 07:00 cyanocobalamin (vitamin B-12) 5,000 mcg sublingual QAM 04/11/23 10/08/23 09/05/23 07:00 5,000 mcg sublingual tablet (Vitamin B-12) lisinopril 40 mg tablet 40 mg PO QAM 04/11/23 10/08/23 09/06/23 07:00 simvastatin 20 mg tablet 20 mg PO QPM #90 tabs 06/03/23 10/08/23 09/05/23 07:00 tramadol 50 mg tablet 50 mg PO Q6H PRN pain #180 tabs 07/03/23 10/08/23 09/06/23 07:00 docusate sodium 100 mg tablet 100 mg PO BID PRN Constipation 07/16/23 10/08/23 09/05/23 07:00 hydrochlorothiazide 25 mg tablet 25 mg PO QAM #90 tabs 08/26/23 10/08/23 09/05/23 07:00 amlodipine 10 mg tablet 10 mg PO QAM #90 tabs 09/10/23 10/08/23 Unknown Past Medical History Medical History Aortoiliac stenosis Arthritis Chronic kidney disease History of COVID-2021, resolved Hx of deep venous thrombosis Remote hx, 1980s Hx of migraines Hyperlipidemia Hypertension Osteoarthritis Osteoporosis PAD (peripheral artery disease) Postoperative CSF leak Remote hx, many years ago Associated with lumbar surgery (required blood patch intervention) PVD (peripheral vascular disease) Solitary thyroid nodule Per records Spinal stenosis Spondylolisthesis, acquired Per records Exercise / Class Metabolic Activity III < 4 Walking/Shop/Light housework Past Family History Family History Unknown Hypertension Mother Congestive heart failure Father Stroke syndrome Sister Breast cancer Other No family history of adverse response to anesthesia Denies family history of Colon cancer Ovarian cancer Prostate cancer Myocardial infarction Past Surgical History Surgical History Difficult intubation d/t narrow oropharynx per pt as advised by anesthesiologist remotely Had Right TSA (05/09/23): LMA#4 iGel + regional at [facility] History of colonoscopy History of intravascular stent placement R/L groin (2013) History of lumbar spinal fusion x2 (last one 2013) History of right shoulder replacement Right TSA (05/09/23): LMA#4 iGel + regional at [facility] History of tonsillectomy and adenoidectomy History of tooth extraction S/P appendectomy S/P cataract surgery R/L S/p reverse total shoulder arthroplasty right S/P small bowel resection R/t adhesions Past Anesthesia History Difficult Airway and No Family Hx of Anesthesia Complications D/t narrow oropharynx per pt as advised by anesthesiologist remotely Had Right TSA (05/09/23): LMA#4 iGel + regional at [facility] History of PONV No Hx of PONV and No Hx of Motion Sickness Social History Smoking Status: Former smoker Do You Dip or Chew Tobacco: No Smoking End Date: Quit age 53 Hx Alcohol Use: Yes Alcohol type: wine alcohol intake frequency: a few times a week substance use type: does not use Review of Systems Patient denies chest pain, shortness of breath, fever, chills, cough, wheezing, palpitations. Physical Exam Vital Signs BP 130/74 P 55 TEMP 97.9 SP02 95%RA RESP 18 Physical Full cervical extension range of motion. Full TMJ range of motion. TMD 3 finger breaths Mallampati Score 3 Dentition: missing molars, crowns (sides/molars) Lungs: clear throughout to auscultation Cardiac: regular rate and rhythm, II/ systolic murmur Spine: normal Carotid arteries: negative bruit Extremities: no LE edema Lab Results Anesthesia Preop Results Results Anesthesia Widget: WBC 5.77 K/ul (4.8-10.8) 10/21/23 Hgb 13.0 g/dl (12.0-16.0) 10/21/23 Hct 40.1 % (37.0-47.0) 10/21/23 Plt 245 K/uL (130-400) 10/21/23 Na 134 mmol/L (136-145) L 10/21/23 K 4.4 mmol/L (3.5-5.1) 10/21/23 Cl 97 mmol/L (98-107) L 10/21/23 CO2 30 mmol/L (21-32) 10/21/23 BUN 22 mg/dl (6-23) 10/21/23 Creat 0.92 mg/dl (0.6-1.2) 10/21/23 Glucose Level 98 mg/dl (70-99(Fasting)) 10/21/23 PT 10.9 Seconds (9.0-12.0) 10/21/23 PTT 27 Seconds (21-31) 10/21/23 INR 1.0 (0.9-1.1) 10/21/23 TSH 2.412 uIu/ml (0.300-4.500) 09/12/23 Blood Type O Positive 10/21/23 Antibody Screen NEGATIVE 10/21/23 Testing Electrocardiogram Date: 04/16/23 Sinus bradycardia, rate 54 bpm Chest X-Ray Date: 04/16/23 Cardiomegaly with no active disease in the chest. Echocardiogram Date: 10/04/23 EF 70%. Hyperdynamic LV systolic function with no RWMA. Asymmetric basal septal hypertrophy of the elderly. Grade I DD. Indeterminate left atrial pressure. Trace to mild AI. Mild MR. Mild to moderate TR. Mildly elevated pulmonary artery pressures, estimated PASP 37mmhg ("which may be over estimated due to patient's hyperdynamic state." Other Testing Carotid doppler Date: 10/13/19 No hemodynamically significant stenosis seen within the carotid arteries. Scattered plaque bilaterally
[2023-11-11] MEDS ORDERED: DEXAMETHASONE SOD INJ 4 MG/ML VIAL ONE (07:03)
[2023-11-11] MEDS ORDERED: PROPOFOL IV EMULSION 10 MG/ML 20 ML VIAL IV ONE (07:03)
[2023-11-11] MEDS ORDERED: ROCURONIUM BROMIDE 10 MG/ML 5 ML VIAL IV ONE ×2 (07:03→09:15)
[2023-11-11] MEDS ORDERED: LIDOCAINE 2% 2 ML VIAL/AMP(20MG/ML) INFIL ONE (07:03)
[2023-11-11] MEDS ORDERED: fentaNYL citrate PF 100 MCG/2 ML VIAL ONE ×2 (07:03→08:47)
[2023-11-11] MEDS ORDERED: ONDANSETRON INJ 2 MG/ML 2 ML VIAL ONE (07:03)
--- NOTE | 2023-11-11 07:29 | History & Physical Report ---
Date of Service November 11, 2023 Assessment & Plan (1) PAD (peripheral artery disease): Plan: Patient's diagnostic angiogram did demonstrate a distal external iliac artery lesion, as well as a common femoral artery lesion and her well-known bilateral SFA occlusions. Due to the severity of her calf claudication symptoms, we recommended that she undergo stenting of the external iliac artery lesion, a right common femoral artery endarterectomy, and a common femoral artery to above-knee popliteal artery prosthetic bypass. The procedure risks benefits and alternatives were discussed with the patient. Patient expressed understanding and agreement to proceed. History of Present Illness Chief Complaint: Right lower extremity claudication Primary Care Provider: Mumtaz Navas MD Ms. Husain is an elderly female who presents to vascular surgery clinic today for a follow-up visit after undergoing a diagnostic bilateral lower extremity arteriogram due to significant peripheral arterial disease. As you may remember, patient does have a history of significant aortoiliac occlusive disease and has undergone iliac stenting in the past. She is also known to have significant peripheral arterial disease with bilateral SFAO. Patient has been complaining of significant right leg claudication which limits her activity, and a diagnostic angiogram was performed to assist with surgical planning. Patient denies any complaints or concerns related to her puncture site. She does state that she is interested in undergoing necessary surgery which was discussed with her on the day of her angiogram. Allergies Allergy/AdvReac Type Severity Reaction Status Date / Time erythromycin base Allergy Severe Lip Verified 11/11/23 07:03 swelling Penicillins Allergy Severe Throat Verified 11/11/23 07:03 swelling Sulfa (Sulfonamide Allergy Severe Swelling Verified 11/11/23 07:03 Antibiotics) of Lip/Tongue/Throat sulfamethoxazole Allergy Severe Swelling Verified 11/11/23 07:03 of Lip/Tongue/Throat adhesive AdvReac Mild Skin Verified 11/11/23 07:03 irritation Home Medications Medication Instructions Recorded Confirmed Type multivitamin with iron 1 tab PO QAM 10/13/18 11/11/23 History aspirin 81 mg tablet,delayed 81 mg PO QAM 12/01/18 11/11/23 History release glucosamine sulfate 2KCl 1,000 mg 2,000 mg PO BID 12/01/18 11/11/23 History tablet acetaminophen 500 mg tablet 500 - 1,000 mg PO Q6H PRN prn 04/11/23 11/11/23 History atenolol 50 mg tablet 50 mg PO QAM #90 tabs 04/11/23 11/11/23 Rx calcium 500 mg tablet 1,000 mg PO QAM 04/11/23 11/11/23 History cyanocobalamin (vitamin B-12) 5,000 mcg sublingual QAM 04/11/23 11/11/23 History 5,000 mcg sublingual tablet (Vitamin B-12) lisinopril 40 mg tablet 40 mg PO QAM 04/11/23 11/11/23 History simvastatin 20 mg tablet 20 mg PO QPM #90 tabs 06/03/23 11/11/23 Rx tramadol 50 mg tablet 50 mg PO Q6H PRN pain #180 tabs 07/03/23 11/11/23 Rx docusate sodium 100 mg tablet 100 mg PO BID PRN Constipation 07/16/23 11/11/23 History hydrochlorothiazide 25 mg tablet 25 mg PO QAM #90 tabs 08/26/23 11/11/23 Rx amlodipine 10 mg tablet 10 mg PO QAM #90 tabs 09/10/23 11/11/23 Rx clindamycin HCl 300 mg capsule 300 mg PO ONCE #2 caps 10/28/23 11/11/23 Rx Past Med/Surg History Problem List Encounter for pre-operative examination Medical History Osteoarthritis Aortoiliac stenosis PAD (peripheral artery disease) PVD (peripheral vascular disease) Osteoporosis Solitary thyroid nodule Per records Spondylolisthesis, acquired Per records Chronic kidney disease Spinal stenosis Arthritis Hx of deep venous thrombosis Remote hx, 1980s Hx of migraines Hypertension Hyperlipidemia History of COVID-19 2021, resolved Postoperative CSF leak Remote hx, many years ago Associated with lumbar surgery (required blood patch intervention) Surgical History History of right shoulder replacement Right TSA (05/09/23): LMA#4 iGel + regional at [facility] History of tooth extraction History of tonsillectomy and adenoidectomy Difficult intubation d/t narrow oropharynx per pt as advised by anesthesiologist remotely Had Right TSA (05/09/23): LMA#4 iGel + regional at [facility] S/p reverse total shoulder arthroplasty right History of intravascular stent placement R/L groin (2014) History of lumbar spinal fusion x2 (last one 2013) History of colonoscopy S/P small bowel resection R/t adhesions S/P cataract surgery R/L S/P appendectomy Family History Unknown Hypertension Mother Congestive heart failure Father Stroke syndrome Sister Breast cancer Other No family history of adverse response to anesthesia Denies family history of Colon cancer Ovarian cancer Prostate cancer Myocardial infarction Social History Smoking Status: Former smoker Tobacco Type: Cigarettes Smoking End Date: Quit age 53; Second Hand Exposure: Yes (in the past as a child); Do You Dip or Chew Tobacco: No; Hx Alcohol Use: Yes Alcohol type: wine Preferred Language: Kyrgyz Communication Ability: Effective Visual Impairment: No Limitations Hearing Ability: Normal Social Worker School Required: No Beliefs That Will Affect Care: None marital status: / Current Living Situation: Alone current occupational status: retired Feels Safe at Home: Yes Safety Concerns: Feels Safe At This Time Childhood Exposure to Second-Hand Smoke: Yes Dental Care, Regularly: Yes Physical Activity Frequency: Does not Exercise Seatbelt Use: always Sunscreen Use: Yes Assistive Devices: Cane and Glasses Assistive Devices Comment: reading glasses Review of Systems All systems reviewed & are unremarkable except as noted in HPI & below Physical Exam Physical Exam: Constitutional: In general patient is a healthy-appearing well-nourished well- developed elderly female in no distress. She is alert and oriented with any focal deficits. Her heart is regular, her lungs are clear. Her abdomen is soft nontender to bowel sounds in 4 quadrants. Her femoral puncture sites are well- healed. Her lower extremities a pulses are nonpalpable, but are dopplerable. Results & Data Vital Signs (Past 12 Hours) Vital Signs Temp Pulse Resp BP Pulse Ox O2 Del Method 11/11/23 06:54 37.2 C 50 L 20 161/73 H 95 Room Air Code Status & VTE Plan VTE Prophylaxis Plan VTE Prophylaxis will be ordered: Yes
[2023-11-11] MEDS: SODIUM CHLORIDE 0.9% 1,000 ML IV SCH (07:30)
[2023-11-11 07:42] LABS: BUN Creatinine Ratio 23.9 (10-20); Calcium 9.2 mg/dl (8.6-10.3); Creatinine Clr Calc Pharmacy 40.1 ml/min; Est GFR (African American) 69.4 ml/min; Est GFR (Non-African American) 59.9 ml/min
[2023-11-11] MEDS ORDERED: ATROPINE SULFATE 0.1 MG/ML 10ML SYR IV PRN (08:04)
[2023-11-11] MEDS ORDERED: ePHEDrine sulfate 50 MG/ML AMP IV PRN (08:04)
[2023-11-11] MEDS ORDERED: DROPERIDOL 5 MG/2 ML VIAL IV PRN (08:04)
[2023-11-11] MEDS: CLINDAMYCIN/D5W 900 MG/50 ML BAG IV SCH (08:06)
[2023-11-11] MEDS ORDERED: KETAMINE HCL 10MG/ML SYR ONE (08:12)
[2023-11-11] MEDS ORDERED: GLYCOPYRROLATE 0.2 MG/ML VIAL ONE (09:02)
[2023-11-11] MEDS: LIDOCAINE 1% LOCAL 20 ML VIAL ONE (09:44)
[2023-11-11] MEDS: THROMBIN FOR SOLN 20000 UNIT KIT ONE (09:44)
[2023-11-11] MEDS: BUPIVACAINE/EPINEPHRINE 0.5% MPF 1:200,000 30 ML VIAL ONE (09:44)
[2023-11-11] MEDS: ceFAZolin 330 MG/ML 1 GM VIAL ONE (09:44)
[2023-11-11] MEDS: GELATIN SPONGE SZ 100 ONE (09:45)
[2023-11-11] MEDS ORDERED: HEPARIN SOD (PORCINE) 1000 UNIT/ML ONE (09:58)
[2023-11-11] MEDS ORDERED: SUGAMMADEX SODIUM 200 MG/2 ML VIAL IV ONE (10:57)
[2023-11-11] MEDS ORDERED: PROTAMINE SULFATE 10 MG/ML 5 ML VIAL IV ONE (10:58)
[2023-11-11] MEDS: VISIPAQUE IV ONE (11:35)
[2023-11-11] MEDS: PAPAVERINE HCL INJ 30 MG/ML 2 ML VIAL ONE (11:35)
[2023-11-11] MEDS: HEPARIN (PORCINE) 1000 UNIT/ML 10 ML (CATH LAB USE ONLY) ONE (11:35)
--- NOTE | 2023-11-11 11:57 | Post Operative Brief Note ---
Immediate Post Op Note Date of Surgery November 11, 2023 Pre & Post Diagnosis Operation Date: 11/11/23 08:00 Pre-Op Diagnosis: (1) PAD (peripheral artery disease) Post-Op Diagnosis: (1) PAD (peripheral artery disease) I identified the patient and participated in the time-out.: Yes Procedure Operation Date: 11/11/23 08:00 Actual Procedures p Right Lower Extremity Common Femoral Artery Endarterectomy with bovine patch, External Iliac Stenting, cannulation of the aorta(Right) - Wil Salas MD Surgeon Wil Salas MD Rubber Trimmer none Estimated Blood Loss 250 Findings Consistent with Post-Op Diagnosis Drains Hemovac Drain (PREVINA)
[2023-11-11] MEDS: fentaNYL citrate PF 100 MCG/2 ML VIAL IV PRN (12:07)
[2023-11-11 12:37] LABS: Basophils # (auto) 0.04 K/uL (0.00-0.20); Basophils % (auto) 0.8 %; Eosinophils # (auto) 0.06 K/uL (0.00-0.50); Eosinophils % (auto) 1.2 %; Hematocrit (blood only) 31.6 % (37.0-47.0); Hemoglobin 10.2 g/dl (12.0-16.0); Immature Granulocytes # (auto) 0.01 K/uL (0.01-0.20); Immature Granulocytes % (auto) 0.2 %; Lymphocytes # (auto) 0.86 K/uL (1.20-3.40); Mean Corpuscular Hemoglobin 28.7 pg (25.0-34.0); Mean Corpuscular Hgb Conc 32.3 g/dL (32.0-36.0); Mean Platelet Volume 11.2 fL (9.4-12.4); Monocytes # (auto) 0.15 K/uL (0.11-0.59); Neutrophils # (auto) 3.93 K/uL (1.40-6.50); Neutrophils % (auto) 77.8 %; Platelet Count 190 K/uL (130-400); RDW Coefficient of Variation 13.7 % (11.5-14.5); RDW Standard Deviation 44.5 fL (36.4-46.3); Red Blood Count 3.55 M/uL (4.20-5.40); White Blood Count 5.05 K/ul (4.8-10.8)
[2023-11-11] MEDS: ACETAMINOPHEN 1,000 MG/100 ML VIAL IV STA (12:51)
[2023-11-11] MEDS ORDERED: ONDANSETRON INJ 2 MG/ML 2 ML VIAL IV PRN (13:48)
[2023-11-11] MEDS ORDERED: MoRPHine SULFATE 4 MG/ML 1 ML CARP\\VIAL IV PRN (13:48)
[2023-11-11] MEDS ORDERED: PHENYLEPHRINE/NSS 25 MG/250 ML BAG IV PRN (13:48)
--- NOTE | 2023-11-11 13:56 | Critical Care Consultation ---
Date of Consultation November 11, 2023 Assessment & Plan (1) PAD (peripheral artery disease): (2) Bradycardia: Plan Impression: 83-year-old female with elective right femoral endarterectomy in the ICU for monitoring postoperatively. Recommendations: 1. Peripheral vascular disease status post endarterectomy: Management per vascular surgery. Continue neurovascular and pulse checks. 2. Postoperative anemia: Baseline hemoglobin around 13 now down to 10. Will continue to follow with serial hemoglobin and hematocrit. 3. Bradycardia: This appears to be a chronic finding and the patient is asymptomatic. No acute intervention required currently. Atenolol may not be the best blood pressure medication for this patient in the long-term however will defer to her primary care provider. 4. Mild hyponatremia: Appears chronic in nature. No acute indication required. Likely exacerbated by the patient's use of hydrochlorothiazide. Again would recommend an alternative antihypertensive in this patient. 5. Hypertension: Continue lisinopril and Norvasc. The patient's remaining critical care issues have been well addressed by the vascular surgery service. Will continue to follow in the ICU postoperatively. Feel free to contact us with questions or concerns History of Present Illness Attending Physician: Wil Salas MD History of Present Illness Asked by vascular surgery to assist in evaluation management this patient post femoral endarterectomy. History is obtained from review electronic medical record as well as discussion with the patient. Patient is an 83-year-old female with a history of peripheral vascular disease. She was seen in the vascular surgery clinic after bilateral lower extremity angiogram. She was found to have distal external iliac disease as well as common femoral disease and it was recommended that she undergo a right femoral endarterectomy and a common femoral to popliteal prosthetic bypass. She was taken to the OR today where she underwent right femoral endarterectomy with external iliac stenting. She was observed in PACU and was bradycardic which is not a new finding for her dating back to her prior admissions. She is hemodynamically stable. Leg is neurovascularly intact. She is brought to the ICU for postoperative monitoring. She denies any chest pain or palpitations. No shortness of breath. No nausea or vomiting. No syncope or presyncope. Allergies Allergy/AdvReac Type Severity Reaction Status Date / Time erythromycin base Allergy Severe Lip Verified 11/11/23 07:03 swelling Penicillins Allergy Severe Throat Verified 11/11/23 07:03 swelling Sulfa (Sulfonamide Allergy Severe Swelling Verified 11/11/23 07:03 Antibiotics) of Lip/Tongue/Throat sulfamethoxazole Allergy Severe Swelling Verified 11/11/23 07:03 of Lip/Tongue/Throat adhesive AdvReac Mild Skin Verified 11/11/23 07:03 irritation Home Medications Medication Instructions Recorded Confirmed Type multivitamin with iron 1 tab PO QAM 10/13/18 11/11/23 History aspirin 81 mg tablet,delayed 81 mg PO QAM 12/01/18 11/11/23 History release glucosamine sulfate 2KCl 1,000 mg 2,000 mg PO BID 12/01/18 11/11/23 History tablet acetaminophen 500 mg tablet 500 - 1,000 mg PO Q6H PRN prn 04/11/23 11/11/23 History atenolol 50 mg tablet 50 mg PO QAM #90 tabs 04/11/23 11/11/23 Rx calcium 500 mg tablet 1,000 mg PO QAM 04/11/23 11/11/23 History cyanocobalamin (vitamin B-12) 5,000 mcg sublingual QAM 04/11/23 11/11/23 History 5,000 mcg sublingual tablet (Vitamin B-12) lisinopril 40 mg tablet 40 mg PO QAM 04/11/23 11/11/23 History simvastatin 20 mg tablet 20 mg PO QPM #90 tabs 06/03/23 11/11/23 Rx tramadol 50 mg tablet 50 mg PO Q6H PRN pain #180 tabs 07/03/23 11/11/23 Rx docusate sodium 100 mg tablet 100 mg PO BID PRN Constipation 07/16/23 11/11/23 History hydrochlorothiazide 25 mg tablet 25 mg PO QAM #90 tabs 08/26/23 11/11/23 Rx amlodipine 10 mg tablet 10 mg PO QAM #90 tabs 09/10/23 11/11/23 Rx clindamycin HCl 300 mg capsule 300 mg PO ONCE #2 caps 10/28/23 11/11/23 Rx Patient History Medical History Osteoarthritis Aortoiliac stenosis PAD (peripheral artery disease) PVD (peripheral vascular disease) Osteoporosis Solitary thyroid nodule Per records Spondylolisthesis, acquired Per records Chronic kidney disease Spinal stenosis Arthritis Hx of deep venous thrombosis Remote hx, 1980s Hx of migraines Hypertension Hyperlipidemia History of COVID-19 2021, resolved Postoperative CSF leak Remote hx, many years ago Associated with lumbar surgery (required blood patch intervention) Surgical History History of right shoulder replacement Right TSA (05/09/23): LMA#4 iGel + regional at [facility] History of tooth extraction History of tonsillectomy and adenoidectomy Difficult intubation d/t narrow oropharynx per pt as advised by anesthesiologist remotely Had Right TSA (05/09/23): LMA#4 iGel + regional at [facility] S/p reverse total shoulder arthroplasty right History of intravascular stent placement R/L groin (2013) History of lumbar spinal fusion x2 (last one 2013) History of colonoscopy S/P small bowel resection R/t adhesions S/P cataract surgery R/L S/P appendectomy Family History Unknown Hypertension Mother Congestive heart failure Father Stroke syndrome Sister Breast cancer Other No family history of adverse response to anesthesia Denies family history of Colon cancer Ovarian cancer Prostate cancer Myocardial infarction Social History Smoking Status: Former smoker Tobacco Type: Cigarettes Smoking End Date: Quit age 53; Second Hand Exposure: Yes (in the past as a child); Do You Dip or Chew Tobacco: No; Hx Alcohol Use: Yes Alcohol type: wine Preferred Language: [place] Communication Ability: Effective Visual Impairment: No Limitations Hearing Ability: Normal Regional Agronomist Required: No Beliefs That Will Affect Care: None marital status: / Current Living Situation: Alone current occupational status: retired Feels Safe at Home: Yes Safety Concerns: Feels Safe At This Time Childhood Exposure to Second-Hand Smoke: Yes Dental Care, Regularly: Yes Physical Activity Frequency: Does not Exercise Seatbelt Use: always Sunscreen Use: Yes Assistive Devices: Cane and Glasses Assistive Devices Comment: reading glasses Review of Systems Review of Systems: All systems reviewed & are unremarkable except as noted in Subjective Physical Exam Constitutional: WD/WN, vitals as above Neck: trachea midline, no thyromegaly Respiratory: normal respiratory effort, lungs clear to auscultation Cardiovascular: RRR, no murmur, no edema Gastrointestinal (Abdomen): normal bowel sounds, soft, nontender, no hepatosplenomegaly Musculoskeletal: Extremities: extremities normal to inspection Skin: no rashes, warm and dry Neurologic: Nonfocal exam Lymphatic: no cervical lymphadenopathy Results & Data Results & Data Vital Signs (Past 12 Hours) Vital Signs Temp Pulse Pulse Resp BP BP Pulse Ox 11/11/23 13:15 46 L 17 98/47 L 117/35 L 100 11/11/23 13:05 49 L 12 98/46 L 120/37 L 97 11/11/23 12:55 52 L 12 97/55 L 121/35 L 99 11/11/23 12:45 53 L 17 110/52 L 121/39 L 99 11/11/23 12:35 36.4 C L 52 L 12 90/48 L 110/36 L 99 11/11/23 12:25 51 L 12 91/51 L 109/35 L 93 11/11/23 12:15 54 L 13 94/50 L 114/36 L 98 11/11/23 12:05 55 L 12 89/57 L 111/38 L 98 11/11/23 11:55 51 L 12 97/51 L 103/35 L 97 11/11/23 11:48 36.2 C L 51 L 13 87/48 L 107/39 L 100 11/11/23 06:54 37.2 C 50 L 20 161/73 H 95 O2 Del Method O2 Flow Rate 11/11/23 13:15 Nasal Cannula 2 11/11/23 13:05 Nasal Cannula 2 11/11/23 12:55 Nasal Cannula 2 11/11/23 12:45 Nasal Cannula 2 11/11/23 12:35 Nasal Cannula 2 11/11/23 12:25 Nasal Cannula 2 11/11/23 12:15 Room Air 11/11/23 12:05 Room Air 11/11/23 11:55 Oxymask 7 11/11/23 11:48 Oxymask 7 11/11/23 06:54 Room Air Critical Care Results & Data Vital Signs (Past 12 Hours) Vital Signs Temp Pulse Pulse Resp BP BP Pulse Ox 11/11/23 13:15 46 L 17 98/47 L 117/35 L 100 11/11/23 13:05 49 L 12 98/46 L 120/37 L 97 11/11/23 12:55 52 L 12 97/55 L 121/35 L 99 11/11/23 12:45 53 L 17 110/52 L 121/39 L 99 11/11/23 12:35 36.4 C L 52 L 12 90/48 L 110/36 L 99 11/11/23 12:25 51 L 12 91/51 L 109/35 L 93 11/11/23 12:15 54 L 13 94/50 L 114/36 L 98 11/11/23 12:05 55 L 12 89/57 L 111/38 L 98 11/11/23 11:55 51 L 12 97/51 L 103/35 L 97 11/11/23 11:48 36.2 C L 51 L 13 87/48 L 107/39 L 100 11/11/23 06:54 37.2 C 50 L 20 161/73 H 95 O2 Del Method O2 Flow Rate 11/11/23 13:15 Nasal Cannula 2 11/11/23 13:05 Nasal Cannula 2 11/11/23 12:55 Nasal Cannula 2 11/11/23 12:45 Nasal Cannula 2 11/11/23 12:35 Nasal Cannula 2 11/11/23 12:25 Nasal Cannula 2 11/11/23 12:15 Room Air 11/11/23 12:05 Room Air 11/11/23 11:55 Oxymask 7 11/11/23 11:48 Oxymask 7 11/11/23 06:54 Room Air Lab & Micro Results (Past 24 Hours) RBC 3.55 M/uL (4.20-5.40) L 11/11/23 WBC 5.05 K/ul (4.8-10.8) 11/11/23 Hgb 10.2 g/dl (12.0-16.0) L 11/11/23 Hct 31.6 % (37.0-47.0) L 11/11/23 MCV 89.0 fL (80.0-100.0) 11/11/23 MCH 28.7 pg (25.0-34.0) 11/11/23 MCHC 32.3 g/dL (32.0-36.0) 11/11/23 RDW Standard Deviation 44.5 fL (36.4-46.3) 11/11/23 RDW Coefficient of Variation 13.7 % (11.5-14.5) 11/11/23 Plt Count 190 K/uL (130-400) 11/11/23 MPV 11.2 fL (9.4-12.4) 11/11/23 Neutrophils (%) (Auto) 77.8 % 11/11/23 Lymphocytes (%) (Auto) 17.0 % 11/11/23 Monocytes # (Auto) 0.15 K/uL (0.11-0.59) 11/11/23 Eosinophils # (Auto) 0.06 K/uL (0.00-0.50) 11/11/23 Immature Granulocyte % (Auto) 0.2 % 11/11/23 Neutrophils # (Auto) 3.93 K/uL (1.40-6.50) 11/11/23 Lymphocytes # (Auto) 0.86 K/uL (1.20-3.40) L 11/11/23 Monocytes # (Auto) 0.15 K/uL (0.11-0.59) 11/11/23 Eosinophils # (Auto) 0.06 K/uL (0.00-0.50) 11/11/23 Basophils # (Auto) 0.04 K/uL (0.00-0.20) 11/11/23 Immature Granulocyte # (Auto) 0.01 K/uL (0.01-0.20) 4 Na 134 mmol/L (136-145) L 11/11/23 K 4.0 mmol/L (3.5-5.1) 11/11/23 Cl 97 mmol/L (98-107) L 11/11/23 CO2 31 mmol/L (21-32) 11/11/23 Anion Gap 6 (3-11) 11/11/23 BUN 21 mg/dl (6-23) 11/11/23 Creatinine 0.88 mg/dl (0.6-1.2) 11/11/23 Estimated GFR ( Amer) 69.4 ml/min 11/11/23 Estimated GFR (Non-Af Amer) 59.9 ml/min 11/11/23 BUN/Creatinine Ratio 23.9 (10-20) H 11/11/23 Glu 85 mg/dl (70-99(Fasting)) 11/11/23 Ca 9.2 mg/dl (8.6-10.3) 11/11/23 Calcium Level 9.2 mg/dl (8.6-10.3) 11/11/23 06:53 I & O Totals 24 Hours 11/10/23 11/11/23 11/12/23 06:59 06:59 06:59 Intake Total 2700 / 2700 Output Total 450 / 450 Balance 2250 / 2250 Cumulative 09/25/23 14:06 thru 11/11/23 12:52 Intake Total 2700 Output Total 450 Balance 2250 RT Ventilator Mngmt (Last Documented) Ventilator Ordered Settings Respiratory Rate 17 11/11/23 13:15 Ventilator - PT Measurements Respiratory Rate 17 Coding Level of Care Code 84632 IN/OBS CONSULT LVL 3,45M Diagnoses PAD (peripheral artery disease) I73.9 Bradycardia R00.1
[2023-11-11] MEDS: D5W AND 1/2NSS 1,000 ML IV SCH (14:38)
[2023-11-11] MEDS: [UNRECOGNIZED DRUG - REMARK] SCH (15:07)
[2023-11-11] MEDS: CLINDAMYCIN/D5W 600 MG/50 ML BAG IV SCH (15:50)
[2023-11-11] MEDS ORDERED: GLUCOSAMINE SULFATE 1000 MG PO SCH (21:00)
[2023-11-11] MEDS: DOCUSATE SODIUM 100 MG CAP PO SCH (21:05)
[2023-11-11] MEDS: SIMVASTATIN 20 MG TAB PO SCH (21:05)
[2023-11-11] MEDS: MELATONIN 3 MG TAB PO PRN (21:05)
[2023-11-12 04:51] LABS: Basophils # (auto) 0.01 K/uL (0.00-0.20); Basophils % (auto) 0.1 %; Hematocrit (blood only) 26.1 % (37.0-47.0); Hemoglobin 8.8 g/dl (12.0-16.0); Immature Granulocytes # (auto) 0.03 K/uL (0.01-0.20); Immature Granulocytes % (auto) 0.4 %; Lymphocytes # (auto) 1.11 K/uL (1.20-3.40); Lymphocytes % (auto) 13.3 %; Mean Corpuscular Hemoglobin 29.5 pg (25.0-34.0); Mean Corpuscular Hgb Conc 33.7 g/dL (32.0-36.0); Mean Corpuscular Volume 87.6 fL (80.0-100.0); Mean Platelet Volume 10.7 fL (9.4-12.4); Monocytes # (auto) 0.49 K/uL (0.11-0.59); Monocytes % (auto) 5.9 %; Neutrophils % (auto) 80.3 %; Platelet Count 175 K/uL (130-400); RDW Coefficient of Variation 13.7 % (11.5-14.5); RDW Standard Deviation 43.8 fL (36.4-46.3); Red Blood Count 2.98 M/uL (4.20-5.40); White Blood Count 8.34 K/ul (4.8-10.8)
[2023-11-12 05:15] LABS: Potassium 4.6 mmol/L (3.5-5.1)
[2023-11-12 05:20] LABS: BUN Creatinine Ratio 23.5 (10-20); Creatinine Clr Calc Pharmacy 40.9 ml/min; Est GFR (African American) 72.4 ml/min; Est GFR (Non-African American) 62.5 ml/min
--- NOTE | 2023-11-12 07:20 | Critical Care Progress Note ---
Date of Service November 12, 2023 Assessment & Plan (1) PAD (peripheral artery disease): (2) Bradycardia: Plan Impression: 83-year-old female with elective right femoral endarterectomy postop day 1 in the ICU for monitoring postoperatively. She is doing well clinically Recommendations: 1. Peripheral vascular disease status post endarterectomy: Management per vascular surgery. Continue neurovascular and pulse checks. Okay to discontinue arterial line 2. Postoperative anemia: Baseline hemoglobin around 13 now down to 9. Will continue to follow with serial hemoglobin and hematocrit. 3. Bradycardia: This appears to be a chronic finding and the patient is asymptomatic. No acute intervention required currently. Atenolol may not be the best blood pressure medication for this patient in the long-term however will defer to her primary care provider. 4. Mild hyponatremia: Worse this morning. Discontinue hydrochlorothiazide and follow blood pressure. 5. Hypertension: Continue lisinopril and Norvasc. The patient's remaining critical care issues have been well addressed by the vascular surgery service. Critical care will sign off. Feel free to contact us with questions or concerns Admission and Anticipated Discharge Date Admission Date: November 11, 2023 Subjective Patient seen and examined. EMR reviewed. Discussed with bedside critical care nurse and on multidisciplinary rounds. The patient reports that she is doing reasonably well. She did have insomnia overnight and received a medication which resulted in nightmares and nocturnal hallucinations. She states she takes Tylenol PM typically at home when she cannot sleep which is highly effective. She reports no pain in her leg. She has been hemodynamically stable. Review of Systems 2 Review of Systems: All systems reviewed & are unremarkable except as noted in Subjective Physical Exam 2 Constitutional: WD/WN, vitals as above Neck: trachea midline, no thyromegaly Respiratory: normal respiratory effort, lungs clear to auscultation Cardiovascular: RRR, no murmur, no edema Gastrointestinal (Abdomen): normal bowel sounds, soft, nontender, no hepatosplenomegaly Musculoskeletal: Extremities: extremities normal to inspection Skin: no rashes, warm and dry Lymphatic: no cervical lymphadenopathy Results & Data Results & Data Vital Signs (Past 12 Hours) Vital Signs Temp Pulse Resp BP Pulse Ox 11/12/23 07:06 61 13 97 11/12/23 06:30 61 10 L 93 11/12/23 06:06 64 14 94 11/12/23 06:00 104/56 L 11/12/23 05:54 62 18 95 11/12/23 05:30 55 L 12 93 11/12/23 05:00 56 L 15 93 11/12/23 05:00 98/53 L 11/12/23 04:33 57 L 16 93 11/12/23 04:00 105/49 L 11/12/23 04:00 55 L 14 94 11/12/23 03:36 55 L 13 93 11/12/23 03:18 96/50 L 11/12/23 03:12 57 L 16 94 11/12/23 03:00 99/47 L 11/12/23 02:57 53 L 11 L 96 11/12/23 02:33 53 L 17 93 11/12/23 02:00 110/54 L 11/12/23 02:00 110/54 L 11/12/23 01:51 59 L 17 92 11/12/23 01:00 109/58 L 11/12/23 01:00 53 L 16 95 11/12/23 00:27 53 L 13 93 11/12/23 00:00 117/62 11/12/23 00:00 117/62 11/12/23 00:00 117/62 11/11/23 23:39 51 L 11 L 91 11/11/23 23:21 56 L 21 94 11/11/23 23:03 36.5 C 101/47 L 11/11/23 23:03 101/47 L 11/11/23 22:57 52 L 12 94 11/11/23 22:49 50 L 11/11/23 22:21 52 L 13 93 11/11/23 22:00 100/67 11/11/23 22:00 100/67 11/11/23 21:54 51 L 12 93 11/11/23 21:21 55 L 14 93 11/11/23 21:01 110/54 L 11/11/23 21:01 110/54 L 11/11/23 20:57 52 L 18 91 11/11/23 20:03 36.5 C 92 11/11/23 19:36 60 22 96 Laboratory Results 11/12/23 04:38 11/12/23 04:38 Diagnostic Findings No new imaging Coding Level of Care Code 23643 SUB INP/OBS CARE MIN Diagnoses PAD (peripheral artery disease) I73.9 Bradycardia R00.1
[2023-11-12] MEDS: traMADol HCL 50 MG TABLET PO PRN (07:52)
[2023-11-12] MEDS: MULTIVITAMIN TAB PO SCH (07:55)
[2023-11-12] MEDS: CALCIUM CARBONATE 1250MG TAB PO SCH (07:56)
[2023-11-12] MEDS: ATENOLOL 50 MG TABLET PO SCH (07:56)
[2023-11-12] MEDS: lisinopril 40 MG TAB PO SCH (07:56)
[2023-11-12] MEDS: CYANOCOBALAMIN (B-12) 2,500 MCG TABLET SL SCH (07:56)
[2023-11-12] MEDS: amLODIPine BESYLATE 5 MG TAB PO SCH (07:57)
[2023-11-12] MEDS: ASPIRIN 81 MG ECTAB PO SCH (07:57)
[2023-11-12] MEDS ORDERED: SODIUM CHLORIDE 0.9% 250 ML IV PRN (08:51)
[2023-11-12] MEDS ORDERED: hydroCHLOROthiazide 25 MG TAB PO SCH (09:00)
--- NOTE | 2023-11-12 11:00 | Surgery Progress Note ---
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 Start PT/OT, WBAT. Likely for rehab placement later this week. Noted chronic mild hyponatremia of 130-134 baseline, Na 127 today. Will reeval tomorrow. (2) Aortoiliac stenosis: Plan: See above (3) Postoperative anemia due to acute blood loss: Plan: Pre op hgb 13, 8.8 today and mildly hypotensive. EBL 250cc yesterday. Transfuse 1 U PRBC today, H&H tomorrow AM. Admission and Anticipated Discharge Date Admission Date: November 11, 2023 Subjective 83 yo f with hx of PAD, now POD #1 after RLE common femoral artery endarterectomy with bovine patch and external iliac artery stenting, seen in f/u today. Pt states feeling overall ok. Taking PO well, no nausea. Admits pain in R groin incision, mild edema of R ankle, and fatigue. States pain controlled with medications. No pain in feet. Review of Systems Review of Systems: All systems reviewed & are unremarkable except as noted in HPI & below Physical Exam Constitutional: well developed, well nourished, cooperative and comfortable; not in distress Respiratory: normal respiratory effort, lungs clear to auscultation Auscultation: + diminished lung sounds Cardiovascular: Rate/Rhythm: regular rhythm and + bradycardic Vessels: posterior tibial pulses present (RLE + doppler, LLE + doppler) and dorsalis pedis pulses present (RLE +1, LLE +1); + abnormal peripheral pulses Extremities: normal capillary refill and + edema (Mild ankles BLE) Gastrointestinal (Abdomen): Inspection/Auscultation: abdomen normal to inspection and normal bowel sounds Percussion/Palpation: abdomen soft; abdomen nontender Musculoskeletal: no cyanosis or clubbing, extremities motor strength 5/5 Skin: no rashes, warm and dry + incision (R groin + prevena, mild local edema/ecchymosis) Neurologic: moves all extremities and awake; no focal motor deficits and not confused Psychiatric: A+Ox3, euthymic affect Results & Data Vital Signs (Past 12 Hours) Vital Signs Temp Pulse Resp BP Pulse Ox 11/12/23 10:00 54 L 17 11/12/23 10:00 107/54 L 11/12/23 09:39 53 L 21 97 11/12/23 09:03 55 L 17 97 11/12/23 09:00 117/47 L 11/12/23 08:45 56 L 16 98 11/12/23 08:36 56 L 16 99 11/12/23 08:19 111/46 L 11/12/23 08:19 111/46 L 11/12/23 08:18 56 L 17 96 11/12/23 08:15 63 18 96 11/12/23 08:06 63 29 H 97 11/12/23 08:06 95/57 L 11/12/23 08:00 64 19 96 11/12/23 07:48 64 17 94 11/12/23 07:06 61 13 97 11/12/23 06:30 61 10 L 93 11/12/23 06:06 64 14 94 11/12/23 06:00 104/56 L 11/12/23 05:54 62 18 95 11/12/23 05:30 55 L 12 93 11/12/23 05:00 56 L 15 93 11/12/23 05:00 98/53 L 11/12/23 04:33 57 L 16 93 11/12/23 04:00 105/49 L 11/12/23 04:00 55 L 14 94 11/12/23 03:36 55 L 13 93 11/12/23 03:18 96/50 L 11/12/23 03:12 57 L 16 94 11/12/23 03:00 99/47 L 11/12/23 02:57 53 L 11 L 96 11/12/23 02:33 53 L 17 93 11/12/23 02:00 110/54 L 11/12/23 02:00 110/54 L 11/12/23 01:51 59 L 17 92 11/12/23 01:00 109/58 L 11/12/23 01:00 53 L 16 95 11/12/23 00:27 53 L 13 93 11/12/23 00:00 117/62 11/12/23 00:00 117/62 11/12/23 00:00 117/62 11/11/23 23:39 51 L 11 L 91 11/11/23 23:21 56 L 21 94 11/11/23 23:03 36.5 C 101/47 L 11/11/23 23:03 101/47 L 11/11/23 22:57 52 L 12 94
[2023-11-12] MEDS: ACETAMINOPHEN 325 MG TAB PO PRN (12:51)
[2023-11-13] MEDS: diphenhydrAMINE Capsule 25 MG CAP PO PRN (00:39)
--- NOTE | 2023-11-13 06:39 | Electrocardiogram Report ---
Test Reason : Blood Pressure : / mmHG Vent. Rate : 055 BPM Atrial Rate : 055 BPM P-R Int : 162 ms QRS Dur : 082 ms QT Int : 400 ms P-R-T Axes : 060 019 039 degrees QTc Int : 382 ms Sinus bradycardia Low voltage QRS Borderline ECG When compared with ECG of 16-APR-2023 10:50, No significant change was found Confirmed by Chase Phillips ([id number]) on 11/13/2023 6:39:10 AM Referred By: Wil Salas Confirmed By:Chase Phillips
[2023-11-13 07:11] LABS: Hematocrit (blood only) 31.5 % (37.0-47.0); Hemoglobin 10.7 g/dl (12.0-16.0)
[2023-11-13 07:27] LABS: BUN Creatinine Ratio 25.7 (10-20); Calcium 8.4 mg/dl (8.6-10.3); Creatinine Clr Calc Pharmacy 49.1 ml/min; Est GFR (African American) 85.6 ml/min; Est GFR (Non-African American) 73.9 ml/min; Potassium 4.5 mmol/L (3.5-5.1)
--- NOTE | 2023-11-13 08:59 | Surgery Progress Note ---
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 PT/OT. OK for d/c to rehab when placed. Noted chronic mild hyponatremia of 130-134 baseline, Na 127 on 11/11, now 129 on 11/12. Recommended to follow up with her PCP for this after discharge (2) Aortoiliac stenosis: Plan: See above (3) Postoperative anemia due to acute blood loss: Plan: Pre op hgb 13, 8.8 yesterday 11/11. Transfused 1 U PRBC, now hgb 10.7 and BP more stable. Admission and Anticipated Discharge Date Admission Date: November 11, 2023 Subjective 83 yo f with hx of PAD, now POD #2 after RLE common femoral artery endarterectomy with bovine patch and external iliac artery stenting, seen in f/u today. Pt states feeling overall ok, improved from yesterday. Taking PO well, no nausea. Admits pain in R groin incision, mild edema of R ankle, and fatigue. States pain controlled with medications. No pain in feet. Review of Systems Review of Systems: All systems reviewed & are unremarkable except as noted in HPI & below Physical Exam Constitutional: well developed, well nourished, cooperative and comfortable; not in distress Respiratory: normal respiratory effort, lungs clear to auscultation Auscultation: + diminished lung sounds Cardiovascular: Rate/Rhythm: regular rhythm and + bradycardic Vessels: posterior tibial pulses present (RLE + doppler, LLE + doppler) and dorsalis p adolfo pulses present (RLE +1, LLE +1); + abnormal peripheral pulses Extremities: normal capillary refill and + edema (Mild ankles BLE) Gastrointestinal (Abdomen): Inspection/Auscultation: abdomen normal to inspection and normal bowel sounds Percussion/Palpation: abdomen soft; abdomen nontender Musculoskeletal: no cyanosis or clubbing, extremities motor strength 5/5 Skin: no rashes, warm and dry + incision (R groin + prevena, mild local edema/ecchymosis) Neurologic: moves all extremities and awake; no focal motor deficits and not confused Psychiatric: A+Ox3, euthymic affect Results & Data Vital Signs (Past 12 Hours) Vital Signs Temp Pulse Resp BP Pulse Ox O2 Del Method 11/13/23 07:37 36.8 C 63 16 117/66 96 Room Air
--- NOTE | 2023-11-14 07:54 | Surgery Progress Note ---
Date of Service November 14, 2023 Assessment & Plan (1) PAD (peripheral artery disease): Plan: Patient doing well Await decision on centre care. If not a candidate will send home with home health services maybe tomorrow (2) Aortoiliac stenosis: Plan: See above (3) Postoperative anemia due to acute blood loss: Plan: Pre op hgb 13, 8.8 yesterday 7/2. Transfused 1 U PRBC, now hgb 10.7 and BP more stable. Admission and Anticipated Discharge Date Admission Date: November 11, 2023 Subjective 83 yo f with hx of PAD, now POD #3 after RLE common femoral artery endarterectomy with bovine patch and external iliac artery stenting. Pt states feeling overall ok. She was up in the room with a walker. She denies any foot pain but does have mild incisional pain. Physical Exam Constitutional: WD/WN, vitals as above Respiratory: normal respiratory effort; no respiratory distress Cardiovascular: Rate/Rhythm: regular rate and regular rhythm Extremities: normal capillary refill doppler pedal pulses Skin: + incision (prevena in place) Neurologic: CN's II-XI intact bilaterally and moves all extremities Psychiatric: Orientation: alert and oriented x 3 Results & Data Vital Signs (Past 12 Hours) Vital Signs Temp Pulse Resp BP Pulse Ox O2 Del Method 11/14/23 07:01 36.9 C 64 16 135/73 94 Room Air 11/13/23 20:05 36.7 C 61 18 139/77 95 Room Air
--- NOTE | 2023-11-15 09:05 | Surgery Progress Note ---
Date of Service November 15, 2023 Assessment & Plan (1) PAD (peripheral artery disease): Plan: Patient doing well Patient ready for discharge if bed available or home health services arranged. (2) Aortoiliac stenosis: Admission and Anticipated Discharge Date Admission Date: November 11, 2023 Subjective 83 yo f with hx of PAD, now POD #4 after RLE common femoral artery endarterectomy with bovine patch and external iliac artery stenting. Pt states feeling overall ok. Ambulated in gray yesterday. Only complaint is incisional pain. No foot complaints. Physical Exam Physical Exam: Constitutional: In general patient is a healthy-appearing well-nourished well- developed elderly female in no distress. She is alert and oriented with any focal deficits. Her heart is regular, her lungs are clear. Her abdomen is soft nontender to bowel sounds in 4 quadrants. Her femoral puncture sites are well- healed. Her lower extremities a pulses are nonpalpable, but are dopplerable. Constitutional: WD/WN, vitals as above Cardiovascular: Rate/Rhythm: regular rate and regular rhythm Extremities: normal capillary refill good doppler pulses Skin: + incision (prevena in place) Neurologic: CN's II-XI intact bilaterally and moves all extremities Psychiatric: Orientation: alert and oriented x 3 Results & Data Vital Signs (Past 12 Hours) Vital Signs Temp Pulse Resp BP Pulse Ox O2 Del Method 11/15/23 07:07 36.8 C 61 16 137/76 95 Room Air
[2023-11-18 07:10] VITALS: RESP 16; O2SAT 97
[2023-11-18 08:07] VITALS: BP 120/70; PULSE 56; TEMP 97.7
--- NOTE | 2023-11-18 09:42 | Surgery Progress Note ---
Date of Service November 18, 2023 Assessment & Plan (1) PAD (peripheral artery disease): Plan: Patient doing well Patient ready for discharge if bed available or home health services arranged. (2) Aortoiliac stenosis: Plan: see above Admission and Anticipated Discharge Date Admission Date: November 11, 2023 Subjective 83 yo f with hx of PAD, now POD #7 after RLE common femoral artery endarterectomy with bovine patch and external iliac artery stenting. Pt states feeling well, ready to go home. Review of Systems Review of Systems: All systems reviewed & are unremarkable except as noted in HPI & below Physical Exam Constitutional: well developed, well nourished, cooperative and comfortable; not in distress Respiratory: normal respiratory effort, lungs clear to auscultation Auscultation: + diminished lung sounds Cardiovascular: Rate/Rhythm: regular rhythm and + bradycardic Vessels: posterior tibial pulses present (RLE + doppler, LLE + doppler) and dorsalis pedis pulses present (RLE +1, LLE +1); + abnormal peripheral pulses Extremities: normal capillary refill and + edema (Mild ankles BLE) Gastrointestinal (Abdomen): Inspection/Auscultation: abdomen normal to inspection and normal bowel sounds Percussion/Palpation: abdomen soft; abdomen nontender Musculoskeletal: no cyanosis or clubbing, extremities motor strength 5/5 Skin: no rashes, warm and dry + incision (R groin + prevena, mild local edema/ecchymosis) Neurologic: moves all extremities and awake; no focal motor deficits and not confused Psychiatric: A+Ox3, euthymic affect Results & Data Vital Signs (Past 12 Hours) Vital Signs Temp Pulse Pulse Resp BP BP Pulse Ox 11/18/23 08:05 36.5 C 56 L 16 120/70 97 11/18/23 07:09 36.8 C 57 L 16 168/76 H 97 O2 Del Method 11/18/23 08:05 Room Air 11/18/23 07:09 Room Air
--- NOTE | 2023-11-18 09:43 | Discharge Summary ---
Date of Service November 18, 2023 Admission HPI Per Admitting Provider Ms. Huasin is an elderly female who presents to vascular surgery clinic today for a follow-up visit after undergoing a diagnostic bilateral lower extremity arteriogram due to significant peripheral arterial disease. As you may remember, patient does have a history of significant aortoiliac occlusive disease and has undergone iliac stenting in the past. She is also known to have significant peripheral arterial disease with bilateral SFAO. Patient has been complaining of significant right leg claudication which limits her activity, and a diagnostic angiogram was performed to assist with surgical planning. Patient denies any complaints or concerns related to her puncture site. She does state that she is interested in undergoing necessary surgery which was discussed with her on the day of her angiogram. Admission Exam Per Admitting Provider Constitutional: In general patient is a healthy-appearing well-nourished well- developed elderly female in no distress. She is alert and oriented with any focal deficits. Her heart is regular, her lungs are clear. Her abdomen is soft nontender to bowel sounds in 4 quadrants. Her femoral puncture sites are well- healed. Her lower extremities a pulses are nonpalpable, but are dopplerable. Principal Diagnosis 1. s/p R common femoral endarterectomy with bovine patch, R external iliac artery stent 2. AIOD 3. PAD Discharge Exam Constitutional well developed, well nourished, cooperative and comfortable; not in distress Respiratory normal respiratory effort, lungs clear to auscultation Auscultation: + diminished lung sounds Cardiovascular Rate/Rhythm: regular rhythm and + bradycardic Vessels: posterior tibial pulses present (RLE + doppler, LLE + doppler) and dorsalis pedis pulses present (RLE +1, LLE +1); + abnormal peripheral pulses Extremities: normal capillary refill and + edema (Mild ankles BLE) Gastrointestinal (Abdomen) Inspection/Auscultation: abdomen normal to inspection and normal bowel sounds Percussion/Palpation: abdomen soft; abdomen nontender Musculoskeletal no cyanosis or clubbing, extremities motor strength 5/5 Skin no rashes, warm and dry + incision (R groin + prevena, mild local edema/ecchymosis) Neurologic moves all extremities and awake; no focal motor deficits and not confused Psychiatric A+Ox3, euthymic affect Discharge Data Allergies Allergy/AdvReac Type Severity Reaction Status Date / Time erythromycin base Allergy Severe Lip Verified 11/11/23 07:03 swelling Penicillins Allergy Severe Throat Verified 11/11/23 07:03 swelling Sulfa (Sulfonamide Allergy Severe Swelling Verified 11/11/23 07:03 Antibiotics) of Lip/Tongue/Throat sulfamethoxazole Allergy Severe Swelling Verified 11/11/23 07:03 of Lip/Tongue/Throat adhesive AdvReac Mild Skin Verified 11/11/23 07:03 irritation Consultations 11/11/23 13:48 Consult Bank Teller Routine Procedures Performed Operation Date: 11/11/23 08:00 Actual Procedures p Right Lower Extremity Common Femoral Artery Endarterectomy, External Iliac Stenting(Right) - Wil Salas MD Ordered Studies 11/11/23 07:15 EV angio LE RT Routine Hospital Course (1) PAD (peripheral artery disease): Patient doing well Patient ready for discharge if bed available or home health services arranged. (2) Aortoiliac stenosis: see above Total Time Total Time Spent Total Time Spent (In Minutes): 0 Discharge Plan Discharge Items Patient Disposition: Home - Home Health Services Reason For Visit: Aortoiliac Occlusive Disease, Peripheral Artery Di Discharge Diagnosis: 1. s/p R common femoral endarterectomy with bovine patch, R external iliac artery stent 2. Aortoiliac occlusive disease 3. PAD Activity: Per Instructions section Non-emergency contact: Primary Care Provider and Surgeon Call non-emergency contact if: you have any medication questions, your pain is not controlled, your pain is concerning for you, you have a fever, your wound has increased redness and your wound has increased drainage Follow-up/Referrals: Mumtaz Navas MD [Primary Care Provider] - (Follow up with your PCP within 2 weeks) Wil Salas MD [Physician] - (Follow up with Dr Salas or Pooja Pollard PA-C, in 1-2 weeks for staple removal) Diet: Heart Healthy Addtl Attending Provider Instructions: ACTIVITY RECOMMENDATIONS: May shower, no soaking tub baths. No dressing required for incision SPECIAL CARE INSTRUCTIONS: Call your doctor if: * Temperature above 101 degrees * Pain not relieved by pain medicine ordered * There is increased drainage or redness from any incision * You have any unanswered questions or concerns. Pending Studies at Discharge: No Stand-Alone Forms: My Berggi, Smoking Cessation Medications and DC Order Prescriptions: Continued atenolol 50 mg tablet 50 mg PO QAM Qty: 90 3RF simvastatin 20 mg tablet 20 mg PO QPM Qty: 90 1RF tramadol 50 mg tablet 50 mg PO Q6H PRN (Reason: pain) Qty: 180 1RF hydrochlorothiazide 25 mg tablet 25 mg PO QAM Qty: 90 3RF amlodipine 10 mg tablet 10 mg PO QAM Qty: 90 3RF clindamycin HCl 300 mg capsule 300 mg PO ONCE Qty: 2 0RF Rx Instructions: Take 2 capsules 1 hour prior to dental procedure multivitamin with iron tablet 1 tab PO QAM aspirin 81 mg tablet,delayed release (DR/EC) 81 mg PO QAM glucosamine sulfate 2KCl 1,000 mg tablet 2,000 mg PO BID lisinopril 40 mg tablet 40 mg PO QAM calcium 500 mg Tablet 1,000 mg PO QAM cyanocobalamin (vitamin B-12) [Vitamin B-12] 5,000 mcg Tablet, Sublingual 5,000 mcg SUBLINGUAL QAM acetaminophen 500 mg Tablet 500 - 1,000 mg PO Q6H PRN (Reason: prn) docusate sodium 100 mg tablet 100 mg PO BID PRN (Reason: Constipation) Discharge Orders: Discharge Order (Routine); Ordered 11/18/23 Ordered By: Pooja Pollard Admission Data Admit Date/Time: 11/11/23 07:23 Attending Provider: Wil Salas Admit Provider: Wil Salas Primary Care Provider: Mumtaz Navas Other Providers: Karen Ashley [place]; [place]; Harjit Harry; Hardeep Farfan; Richard Jovel; Richi Muhammad; Stanley Blackburn; Britney Tian; Jason Iyer; Amy Mcdonald; Nyasia Monahan; Rob Terrazas; Warren Mcfarlane; Franca Cagle
--- NOTE | 2023-11-21 21:50 | Anesthesiology Progress Note ---
Date of Service November 11, 2023 Anesthesia Post Procedure Pain Intensity Right Groin: Pain Intensity: 2 Back: Pain Intensity: 6 Transfer of Care Handoff Completed per policy Notes Mental Status: alert / awake / arousable Patient Amnestic to Procedure: Yes Nausea / Vomiting: adequately controlled Pain: adequately controlled Airway Patency, RR, SpO2: stable & adequate BP & HR: stable & adequate Hydration State: stable & adequate Anesthetic Complications: no major complications apparent and Pt Satisfied with anesthetic care
--- NOTE | 2023-12-20 09:25 | Operative Report ---
Post Operative Report Pre & Post Diagnosis Operation Date: 11/11/23 08:00 Pre-Op Diagnosis: (1) PAD (peripheral artery disease) Post-Op Diagnosis: (1) PAD (peripheral artery disease) I identified the patient and participated in the time-out.: Yes Procedure Operation Date: 11/11/23 08:00 Actual Procedures p Right Lower Extremity Common Femoral Artery Endarterectomy, ommmon iliac and External Iliac Stenting(Right) - Wil Salas MD Surgeon Wil Salas MD Tag Meter Operator none Estimated Blood Loss 250 Findings Consistent with Post-Op Diagnosis Specimens none Anesthesia Type General Complications none Disposition Accompanied Patient To Recovery: No Disposition: Recovery Room Indications This is an 83-year-old female who was found to have restenosis of her right iliac stents as well as severe stenosis and occlusion of the right common femoral artery. Endarterectomy of the common femoral artery with stenting of the right iliac was recommended. I have discussed the risks options and benefits of the procedure with the patient. The patient understands the risks options and benefits and agrees to the procedure. Description of Procedure The patient was taken to the op room and placed supine position. After the groins were prepped draped in a sterile manner the patient was identified and a timeout was performed. A longitudinal incision was made in the right groin. This was carried down to where the common femoral artery was identified. It was soft and inguinal ligament but heavily calcified beyond. It was isolated from the inguinal ligament down to beyond the bifurcation. We then punctured the common femoral artery and inserted an 8 [place] sheath. We tried to cannulate the common iliac artery with this was not successful. We then punctured the left common femoral artery and inserted a 6 [place] sheath. We then inserted an 035 wire and a rim catheter. We were able to cannulate the right common iliac from the left side. We advanced the wire downward. It was able to be passed down through the lesion. It was then snared using a 15 mm snare from the right groin. The wire was brought out through the right side. Arteriography done from the right groin prior to puncture the left showed severe stenosis of the distal common iliac artery. This was within the stent. We then used the wire as a real and inserted a 8 x 59 Viabahn. This was deployed in the common iliac artery. We then extended the downward with an 8 x 39 Viabahn. Completion angio done at that time showed a widely patent right common iliac stent with excellent flow down to the inguinal ligament. Patient was adequately heparinized at that point. We then occluded the common femoral artery proximally and the superficial and profundofemoral arteries distally. We performed a longitudinal arteriotomy on the common femoral artery. There was a large amount of plaque present causing near-total occlusion. Endarterectomy of this lesion was undertaken. Good breakoff points were seen proximal distally. The arteriotomy was then closed with a bovine patch sewn in place with a 5-0 Prolene suture. Prior to completing the closure backbleeding forward bleeding was allowed to occur. The final few sutures were then placed and securely tied. Clamps were removed. Excellent flow was seen through the common femoral artery. Adequate hemostasis was noted and the wounds were closed in usual fashion using a running 2-0 Vicryl suture for the femoral sheath and a 3-0 Vicryl for subcutaneous layer. Pratik were used for the skin. Sterile dressings were applied to the wound.The patient left the operation room in satisfactory condition and tolerated the procedure well. All needle and sponge counts were correct at the end of the procedure. I attest to the content of the Intraoperative Record and any orders documented therein. Any exceptions are noted below.
== END 2023-11-18 11:46 | disposition home health service (06) | DRG 271 ==
LOC: ASU 06:35 → 1E 07:23 → 3W 11-12 14:03